=== PATIENT | male | born 1970 | race Asian ===

== ENCOUNTER 2020-08-20 00:22 | Emergency (ER) | payer OTHER, MEDICAID ==
[~2020-08-20] VITALS: Ht 190.5 cm; Wt 99.8 kg
--- NOTE | 2020-08-20 00:31 | NUR ---
PATIENT CAME TO ER [facility] FROM [facility] C/O SEIZURE. PER RA REPORT, PATIENT HAS NOT BEEN TAKING SEIZURE MEDICATIONS FOR 2 MONTHS. PATIENT IS FULLY AAOX4. NO SOB. PATIENT IS AMBULATORY WITH A STEADY GAIT. PATIENT IS CONNECTED TO THE EARLY LEARNING TEACHER. WILL CONTINUE TO MONITOR PATIENT.
[2020-08-20] MEDS ORDERED: DIVALPROEX SODIUM 500 MG TABLET.DR PO ONE ×2 (00:49→01:00)
[2020-08-20 01:28] VITALS: BP 135/69
--- NOTE | 2020-08-20 02:16 | NUR ---
PATIENT STATES THAT HE CALLED A CAB.
--- NOTE | 2020-08-20 02:17 | NUR ---
Patient discharged to home in stable condition. Written and verbal after care instructions given. Patient verbalizes understanding of instruction.
== END 2020-08-20 02:24 | disposition home or self-care (01) ==
LOC: ER 00:24
DX: G40.909 Epilepsy, unspecified, not intractable, without status epilepticus (principal); Z98.890 Other specified postprocedural states; Z88.0 Allergy status to penicillin

== ENCOUNTER 2020-08-20 02:54 | Inpatient (IN) | payer OTHER, MEDICAID ==
[2020-08-20] VITALS (24 sets, daily range): BP systolic 98–166; BP diastolic 43–123
[~2020-08-20] VITALS: Ht 190.5 cm; Wt 108.9 kg
[2020-08-20] MEDS ORDERED: LORAZEPAM INJ 2 MG/ML VIAL ONE (03:09)
[2020-08-20] MEDS ORDERED: GELATIN SPONGE,ABSORBABLE 1 SPONGE SPONGE TP ONE (03:27)
[2020-08-20] MEDS ORDERED: LORAZEPAM INJ 2 MG/ML VIAL IV ONE (03:30)
[2020-08-20 04:10] LABS: BASOPHILS % (AUTO) 0.4 % (0.0-2.0); HEMATOCRIT 37 % (39-51); HEMOGLOBIN 12.6 g/dL (13.5-17.5); LYMPHOCYTES # (AUTO) 0.5 /CMM (0.8-4.8); LYMPHOCYTES % (AUTO) 5.8 % (20.0-44.0); MEAN CORPUSCULAR HGB CONC 34 g/dl (31.0-36.0); MEAN CORPUSCULAR VOLUME 92 fL (80-96); MONOCYTES # (AUTO) 0.4 /CMM (0.1-1.30); MONOCYTES % (AUTO) 5.1 % (2.0-12.0); NEUTROPHILS % (AUTO) 88.7 % (43.0-81.0); PLATELET COUNT (AUTO) 253 /CMM (150-450); WHITE BLOOD COUNT (AUTO) 7.9 K/uL (4.3-11.0)
[2020-08-20 04:25] LABS: CALCIUM, SERUM 9.2 mg/dL (8.5-10.1); CARBON DIOXIDE 23 mmol/L (21-32); CHLORIDE 85 mmol/L (98-107); CREATININE 1.1 mg/dL (0.6-1.3); GLUCOSE 146 mg/dL (74-106); POTASSIUM 3.3 mmol/L (3.5-5.1); SODIUM SERUM 123 mmol/L (136-145); UREA NITROGEN, BLOOD 2 mg/dL (7-18)
[2020-08-20 04:31] LABS: ALANINE AMINOTRANSFERASE 314 U/L (12-78); ALCOHOL, BLOOD < 3 mg/dL (0-0); ALKALINE PHOSPHATASE 307 U/L (46-116); ASPARTATE AMINOTRANSFERASE 852 U/L (15-37); BILIRUBIN,DIRECT 2.6 mg/dL (0.0-0.2); BILIRUBIN,TOTAL 4.8 mg/dL (0.2-1.0); TOTAL PROTEIN, SERUM 7.5 g/dL (6.4-8.2)
[2020-08-20] MEDS ORDERED: LEVETIRACETAM (500MG) 500 MG/5 ML VIAL IV ONE (05:23)
[2020-08-20] MEDS ORDERED: IV NS 0.9% 1,000 ML IV ONE (05:30)
[2020-08-20] MEDS ORDERED: LEVETIRACETAM (500MG) 1,000 MG in IV NS 0.9% 100 ML IV SCH (05:30)
[2020-08-20] MEDS ORDERED: MAGNESIUM HYDROXIDE 30 ML UDC PO PRN (06:30)
[2020-08-20] MEDS ORDERED: MAG HYDROX/AL HYDROX/SIMETH 30 ML UDC PO PRN (06:30)
[2020-08-20] MEDS ORDERED: ENALAPRILAT INJ (1.25 MG/ML) 1.25 MG/ML VIAL IV PRN (07:00)
[2020-08-20 07:44] LABS: THYROID STIMULATING HORMONE 1.746 uIU/mL (0.358-3.74)
[2020-08-20 08:00] LABS: MAGNESIUM 1.3 mg/dL (1.8-2.4); PHOSPHORUS 1.5 mg/dL (2.5-4.9)
[2020-08-20] MEDS ORDERED: POTASSIUM CHLORIDE 20 MEQ TAB.PRT.SR PO SCH (12:00)
[2020-08-20] MEDS ORDERED: K PHOS NEUTRAL 250 MG TABLET PO ONE (12:00)
[2020-08-20] MEDS: Magnesium 1GM/D5W 100ML PREMIX 100 ML IV SCH ×4 (12:24→16:22)
[2020-08-20] MEDS: Potassium Chloride 10 MEQ in IV NS 0.9% 1,000 ML IV SCH ×2 (14:39→23:33)
[2020-08-20] MEDS: ACETAMINOPHEN 325 MG TABLET PO PRN (16:30)
[2020-08-20] MEDS: LORAZEPAM INJ 2 MG/ML VIAL IV PRN ×2 (18:35→22:49)
[2020-08-20] MEDS: ONDANSETRON HCL/PF 4 MG/2 ML VIAL IVP PRN (20:11)
[2020-08-21] VITALS (26 sets, daily range): BP systolic 96–151; BP diastolic 37–104
[2020-08-21 04:34] LABS: BASOPHILS % (AUTO) 0.5 % (0.0-2.0); HEMATOCRIT 34 % (39-51); HEMOGLOBIN 11.6 g/dL (13.5-17.5); LYMPHOCYTES # (AUTO) 0.8 /CMM (0.8-4.8); LYMPHOCYTES % (AUTO) 10.3 % (20.0-44.0); MEAN CORPUSCULAR HGB CONC 34 g/dl (31.0-36.0); MEAN CORPUSCULAR VOLUME 93 fL (80-96); MONOCYTES # (AUTO) 0.5 /CMM (0.1-1.30); MONOCYTES % (AUTO) 6.2 % (2.0-12.0); PLATELET COUNT (AUTO) 230 /CMM (150-450); RED BLOOD CELL COUNT(AUTO) 3.65 MIL/uL (4.5-6.0); WHITE BLOOD COUNT (AUTO) 7.4 K/uL (4.3-11.0)
[2020-08-21 04:51] LABS: CALCIUM, SERUM 8.1 mg/dL (8.5-10.1); CREATININE 0.8 mg/dL (0.6-1.3); MAGNESIUM 2.3 mg/dL (1.8-2.4); PHOSPHORUS 1.5 mg/dL (2.5-4.9); POTASSIUM 3.2 mmol/L (3.5-5.1)
[2020-08-21] MEDS ORDERED: HALOPERIDOL LACTATE INJ 5 MG/ML VIAL IM ONE (05:30)
[2020-08-21] MEDS: POTASSIUM PHOSPHATE MM 7.5 MMOL in IV NS 0.9% 100 ML IV SCH ×2 (08:45→11:51)
[2020-08-21] MEDS: Potassium Chloride 10 MEQ in IV NS 0.9% 1,000 ML IV SCH (09:36)
[2020-08-21] MEDS ORDERED: LEVETIRACETAM (500MG) 1,000 MG in IV NS 0.9% 100 ML IV ONE (17:00)
[2020-08-21] MEDS: LEVETIRACETAM (250 MG) 250 MG TABLET PO SCH (21:17)
[2020-08-22] VITALS (27 sets, daily range): BP systolic 127–163; BP diastolic 61–99
[2020-08-22 04:32] LABS: BASOPHILS % (AUTO) 0.6 % (0.0-2.0); EOSINOPHILS % (AUTO) 2.7 % (0.0-6.0); HEMATOCRIT 35 % (39-51); LYMPHOCYTES # (AUTO) 1.3 /CMM (0.8-4.8); LYMPHOCYTES % (AUTO) 16.7 % (20.0-44.0); MEAN CORPUSCULAR HGB CONC 34 g/dl (31.0-36.0); MEAN CORPUSCULAR VOLUME 94 fL (80-96); MONOCYTES # (AUTO) 0.5 /CMM (0.1-1.30); MONOCYTES % (AUTO) 6.9 % (2.0-12.0); NEUTROPHILS # (AUTO) 5.8 /CMM (1.8-8.9); NEUTROPHILS % (AUTO) 73.1 % (43.0-81.0); PLATELET COUNT (AUTO) 234 /CMM (150-450); RED BLOOD CELL COUNT(AUTO) 3.74 MIL/uL (4.5-6.0); WHITE BLOOD COUNT (AUTO) 7.9 K/uL (4.3-11.0)
[2020-08-22 05:05] LABS: ALBUMIN 3.5 g/dL (3.4-5.0); BILIRUBIN,DIRECT 1.4 mg/dL (0.0-0.2); BILIRUBIN,TOTAL 2.1 mg/dL (0.2-1.0); CALCIUM, SERUM 8.6 mg/dL (8.5-10.1); PHOSPHORUS 2.9 mg/dL (2.5-4.9); POTASSIUM 4.1 mmol/L (3.5-5.1); TOTAL PROTEIN, SERUM 7.3 g/dL (6.4-8.2)
[2020-08-22] MEDS: LEVETIRACETAM (250 MG) 250 MG TABLET PO SCH ×2 (08:36→20:19)
[2020-08-22] MEDS: HYDROCODONE/APAP 5/325MG TABLET PO PRN (09:20)
[2020-08-22] MEDS: ACETAMINOPHEN 325 MG TABLET PO PRN (10:37)
[2020-08-22] MEDS: LORAZEPAM INJ 2 MG/ML VIAL IV PRN ×2 (13:06→18:12)
[2020-08-22] MEDS: Potassium Chloride 10 MEQ in IV NS 0.9% 1,000 ML IV SCH (15:45)
[2020-08-23] VITALS (21 sets, daily range): BP systolic 125–158; BP diastolic 88–117
[2020-08-23] MEDS: LORAZEPAM INJ 2 MG/ML VIAL IV PRN ×2 (03:51→20:42)
[2020-08-23 04:41] LABS: BASOPHILS # (AUTO) 0.1 /CMM (0.0-0.2); BASOPHILS % (AUTO) 0.8 % (0.0-2.0); EOSINOPHILS % (AUTO) 2.4 % (0.0-6.0); HEMATOCRIT 35 % (39-51); HEMOGLOBIN 11.9 g/dL (13.5-17.5); LYMPHOCYTES # (AUTO) 1.1 /CMM (0.8-4.8); LYMPHOCYTES % (AUTO) 15.8 % (20.0-44.0); MEAN CORPUSCULAR HGB CONC 34 g/dl (31.0-36.0); MEAN CORPUSCULAR VOLUME 94 fL (80-96); MONOCYTES # (AUTO) 0.6 /CMM (0.1-1.30); MONOCYTES % (AUTO) 9.7 % (2.0-12.0); NEUTROPHILS # (AUTO) 4.8 /CMM (1.8-8.9); NEUTROPHILS % (AUTO) 71.3 % (43.0-81.0); PLATELET COUNT (AUTO) 250 /CMM (150-450); RED BLOOD CELL COUNT(AUTO) 3.71 MIL/uL (4.5-6.0); WHITE BLOOD COUNT (AUTO) 6.7 K/uL (4.3-11.0)
[2020-08-23 04:51] LABS: ALBUMIN 3.4 g/dL (3.4-5.0); BILIRUBIN,DIRECT 0.8 mg/dL (0.0-0.2); BILIRUBIN,TOTAL 1.3 mg/dL (0.2-1.0); CALCIUM, SERUM 8.7 mg/dL (8.5-10.1); CREATININE 0.8 mg/dL (0.6-1.3); POTASSIUM 3.8 mmol/L (3.5-5.1); TOTAL PROTEIN, SERUM 7.4 g/dL (6.4-8.2)
[2020-08-23] MEDS: LEVETIRACETAM (250 MG) 250 MG TABLET PO SCH ×2 (08:39→20:35)
[2020-08-23] MEDS ORDERED: LEVETIRACETAM (250 MG) 250 MG TABLET PO ONE (09:00)
[2020-08-23] MEDS: MORPHINE SULFATE INJ 2 MG/ML DISP.SYRIN IV PRN ×2 (09:02→18:19)
[2020-08-23] MEDS: HYDROCODONE/APAP 5/325MG TABLET PO PRN (12:26)
[2020-08-23] MEDS: ACETAMINOPHEN 325 MG TABLET PO PRN ×2 (13:01→20:35)
[2020-08-24] MEDS: MORPHINE SULFATE INJ 2 MG/ML DISP.SYRIN IV PRN ×3 (01:09→15:32)
[2020-08-24] MEDS: LORAZEPAM INJ 2 MG/ML VIAL IV PRN ×2 (03:09→06:56)
[2020-08-24] MEDS: ACETAMINOPHEN 325 MG TABLET PO PRN ×3 (03:17→20:05)
[2020-08-24 06:47] LABS: BASOPHILS % (AUTO) 0.4 % (0.0-2.0); EOSINOPHILS % (AUTO) 0.3 % (0.0-6.0); HEMATOCRIT 36 % (39-51); HEMOGLOBIN 12.4 g/dL (13.5-17.5); LYMPHOCYTES # (AUTO) 0.7 /CMM (0.8-4.8); LYMPHOCYTES % (AUTO) 10.7 % (20.0-44.0); MEAN CORPUSCULAR HGB CONC 34 g/dl (31.0-36.0); MEAN CORPUSCULAR VOLUME 95 fL (80-96); MONOCYTES # (AUTO) 0.6 /CMM (0.1-1.30); MONOCYTES % (AUTO) 9.9 % (2.0-12.0); NEUTROPHILS % (AUTO) 78.7 % (43.0-81.0); PLATELET COUNT (AUTO) 244 /CMM (150-450); RED BLOOD CELL COUNT(AUTO) 3.82 MIL/uL (4.5-6.0); WHITE BLOOD COUNT (AUTO) 6.3 K/uL (4.3-11.0)
[2020-08-24 07:03] LABS: ALBUMIN 3.5 g/dL (3.4-5.0); BILIRUBIN,TOTAL 1.3 mg/dL (0.2-1.0); CALCIUM, SERUM 8.8 mg/dL (8.5-10.1); CREATININE 0.9 mg/dL (0.6-1.3); MAGNESIUM 1.6 mg/dL (1.8-2.4); PHOSPHORUS 3.3 mg/dL (2.5-4.9); POTASSIUM 3.8 mmol/L (3.5-5.1); TOTAL PROTEIN, SERUM 7.5 g/dL (6.4-8.2)
[2020-08-24 08:00] VITALS: BP 136/76
[2020-08-24] MEDS: LEVETIRACETAM (250 MG) 250 MG TABLET PO SCH ×2 (09:38→21:07)
[2020-08-24] MEDS ORDERED: Magnesium 1GM/D5W 100ML PREMIX 100 ML IV SCH (11:00)
[2020-08-24] MEDS ORDERED: ONDANSETRON HCL/PF 4 MG/2 ML VIAL IV PRN (14:00)
[2020-08-24 16:00] VITALS: BP 140/87
[2020-08-24 20:00] VITALS: BP 129/69
[2020-08-24] MEDS: HYDROCODONE/APAP 5/325MG TABLET PO PRN (21:08)
[2020-08-24] MEDS ORDERED: QUETIAPINE FUMARATE 25 MG TABLET PO SCH (22:00)
[2020-08-24] MEDS ORDERED: LEVOFLOXACIN 500 MG /D5W 100ML 100 ML IV ONE (22:03)
[2020-08-24] MEDS: LEVOFLOXACIN 500 MG /D5W 100ML 500 MG in PREMIX 1 EA IV SCH (22:04)
[2020-08-25] MEDS: HYDROCODONE/APAP 5/325MG TABLET PO PRN ×5 (01:42→20:59)
[2020-08-25] MEDS: ACETAMINOPHEN 325 MG TABLET PO PRN ×2 (02:30→10:23)
[2020-08-25 03:52] LABS: BILIRUBIN,URINE SMALL (NEGATIVE); COLOR,URINE YELLOW (YELLOW); LEUKOCYTE ESTERASE ,URINE NEGATIVE (NEGATIVE); NITRITE, URINE NEGATIVE (NEGATIVE); PROTEIN,URINE NEGATIVE (NEGATIVE); UGLUCOSE NEGATIVE (NEGATIVE)
[2020-08-25 04:02] LABS: WBC,URINE 0-2 /HPF (0-3)
[2020-08-25 04:03] LABS: BACTERIA,URINE None seen /HPF (None Seen); MUCUS,URINE Few /LPF (None Seen); SQUAMOUS EPITHELIAL CELL,UR Few /HPF (None Seen); URINE AMORPHOUS PHOSPHATES Few /HPF (None Seen)
[2020-08-25 07:21] LABS: BASOPHILS % (AUTO) 0.7 % (0.0-2.0); EOSINOPHILS % (AUTO) 0.2 % (0.0-6.0); HEMATOCRIT 34 % (39-51); HEMOGLOBIN 11.8 g/dL (13.5-17.5); LYMPHOCYTES # (AUTO) 0.6 /CMM (0.8-4.8); LYMPHOCYTES % (AUTO) 9.8 % (20.0-44.0); MEAN CORPUSCULAR HGB CONC 35 g/dl (31.0-36.0); MEAN CORPUSCULAR VOLUME 94 fL (80-96); MONOCYTES # (AUTO) 0.7 /CMM (0.1-1.30); MONOCYTES % (AUTO) 11.2 % (2.0-12.0); NEUTROPHILS # (AUTO) 4.6 /CMM (1.8-8.9); NEUTROPHILS % (AUTO) 78.1 % (43.0-81.0); PLATELET COUNT (AUTO) 199 /CMM (150-450); RED BLOOD CELL COUNT(AUTO) 3.66 MIL/uL (4.5-6.0); WHITE BLOOD COUNT (AUTO) 5.9 K/uL (4.3-11.0)
[2020-08-25 07:51] LABS: ALBUMIN 3.1 g/dL (3.4-5.0); BILIRUBIN,DIRECT 0.9 mg/dL (0.0-0.2); BILIRUBIN,TOTAL 1.5 mg/dL (0.2-1.0); CALCIUM, SERUM 8.4 mg/dL (8.5-10.1); POTASSIUM 3.7 mmol/L (3.5-5.1); TOTAL PROTEIN, SERUM 7.1 g/dL (6.4-8.2)
[2020-08-25 08:00] VITALS: BP 133/71
[2020-08-25] MEDS ORDERED: QUET25TA PO (09:18)
[2020-08-25] MEDS ORDERED: LEVE250T2 PO (09:18)
[2020-08-25] MEDS: LEVETIRACETAM (250 MG) 250 MG TABLET PO SCH ×2 (09:22→20:25)
[2020-08-25] MEDS: IV NS 0.9% 1,000 ML IV SCH ×2 (12:22→20:40)
[2020-08-25] MEDS: VANCOMYCIN 1 GM in IV D5W 250ml IV SCH ×2 (14:21→15:26)
[2020-08-25 16:00] VITALS: BP 144/76
[2020-08-25] MEDS: ONDANSETRON HCL/PF 4 MG/2 ML VIAL IVP PRN (19:45)
[2020-08-25 20:00] VITALS: BP 144/95
[2020-08-25] MEDS: LEVOFLOXACIN 500 MG /D5W 100ML 500 MG in PREMIX 1 EA IV SCH (20:17)
[2020-08-25] MEDS ORDERED: QUETIAPINE FUMARATE 25 MG TABLET PO SCH (22:00)
[2020-08-26] MEDS: HYDROCODONE/APAP 5/325MG TABLET PO PRN ×3 (02:06→15:50)
[2020-08-26] MEDS: ACETAMINOPHEN 325 MG TABLET PO PRN ×3 (03:06→19:12)
[2020-08-26] MEDS: VANCOMYCIN 1.5 GM in IV D5W 500 ML IV SCH ×2 (03:34→15:07)
[2020-08-26] MEDS: IV NS 0.9% 1,000 ML IV SCH ×2 (06:40→17:34)
[2020-08-26 07:13] LABS: EOSINOPHILS % (AUTO) 0.1 % (0.0-6.0); HEMATOCRIT 33 % (39-51); HEMOGLOBIN 11.4 g/dL (13.5-17.5); LYMPHOCYTES # (AUTO) 0.5 /CMM (0.8-4.8); LYMPHOCYTES % (AUTO) 15.2 % (20.0-44.0); MEAN CORPUSCULAR HGB CONC 34 g/dl (31.0-36.0); MEAN CORPUSCULAR VOLUME 94 fL (80-96); MONOCYTES # (AUTO) 0.4 /CMM (0.1-1.30); MONOCYTES % (AUTO) 9.7 % (2.0-12.0); NEUTROPHILS # (AUTO) 2.7 /CMM (1.8-8.9); PLATELET COUNT (AUTO) 166 /CMM (150-450); RED BLOOD CELL COUNT(AUTO) 3.55 MIL/uL (4.5-6.0); WHITE BLOOD COUNT (AUTO) 3.6 K/uL (4.3-11.0)
[2020-08-26 07:35] LABS: ALBUMIN 2.8 g/dL (3.4-5.0); BILIRUBIN,DIRECT 0.9 mg/dL (0.0-0.2); BILIRUBIN,TOTAL 1.3 mg/dL (0.2-1.0); CALCIUM, SERUM 8.4 mg/dL (8.5-10.1); CREATININE 1.6 mg/dL (0.6-1.3); MAGNESIUM 2.1 mg/dL (1.8-2.4); PHOSPHORUS 3.3 mg/dL (2.5-4.9); POTASSIUM 3.5 mmol/L (3.5-5.1); TOTAL PROTEIN, SERUM 6.7 g/dL (6.4-8.2)
[2020-08-26 08:00] VITALS: BP 104/74
[2020-08-26] MEDS: ONDANSETRON HCL/PF 4 MG/2 ML VIAL IVP PRN (09:48)
[2020-08-26] MEDS: LEVETIRACETAM (250 MG) 250 MG TABLET PO SCH ×2 (11:20→21:12)
[2020-08-26 15:43] LABS: BILIRUBIN,URINE NEGATIVE (NEGATIVE); COLOR,URINE YELLOW (YELLOW); LEUKOCYTE ESTERASE ,URINE NEGATIVE (NEGATIVE); NITRITE, URINE NEGATIVE (NEGATIVE); PROTEIN,URINE NEGATIVE (NEGATIVE); UGLUCOSE NEGATIVE (NEGATIVE)
[2020-08-26 16:02] LABS: BACTERIA,URINE None seen /HPF (None Seen); SQUAMOUS EPITHELIAL CELL,UR 0-2 /HPF (None Seen); URINE AMORPHOUS URATE Moderate /HPF (None Seen); WBC,URINE 0-2 /HPF (0-3)
[2020-08-26 16:17] LABS: CREATININE, URINE 44.2 MG/DL (30.0-125.0); URINE TOTAL PROTEIN 28.9 mg/dL (0-11.9)
[2020-08-26 16:20] LABS: URINE SODIUM, RANDOM < 5 mmol/l (40-220)
[2020-08-26 17:32] LABS: EOSINOPHIL,URINE None Seen
[2020-08-26 20:00] VITALS: BP 144/83
[2020-08-26] MEDS: MORPHINE SULFATE INJ 2 MG/ML DISP.SYRIN IV PRN (20:18)
[2020-08-26] MEDS: LEVOFLOXACIN 500 MG /D5W 100ML 500 MG in PREMIX 1 EA IV SCH (21:13)
[2020-08-26] MEDS ORDERED: QUETIAPINE FUMARATE 100 MG TABLET PO SCH (22:00)
[2020-08-27] MEDS: ACETAMINOPHEN 325 MG TABLET PO PRN ×3 (00:37→21:59)
[2020-08-27 01:52] VITALS: BP 144/83
[2020-08-27] MEDS: MORPHINE SULFATE INJ 2 MG/ML DISP.SYRIN IV PRN ×4 (02:10→19:45)
[2020-08-27] MEDS: VANCOMYCIN 1.5 GM in IV D5W 500 ML IV SCH (02:54)
[2020-08-27] MEDS: IV NS 0.9% 1,000 ML IV SCH ×3 (03:30→22:01)
[2020-08-27 07:01] LABS: BASOPHILS % (AUTO) 0.6 % (0.0-2.0); EOSINOPHILS % (AUTO) 0.3 % (0.0-6.0); HEMATOCRIT 32 % (39-51); HEMOGLOBIN 11.1 g/dL (13.5-17.5); LYMPHOCYTES # (AUTO) 0.6 /CMM (0.8-4.8); LYMPHOCYTES % (AUTO) 11.8 % (20.0-44.0); MEAN CORPUSCULAR HGB CONC 35 g/dl (31.0-36.0); MEAN CORPUSCULAR VOLUME 91 fL (80-96); MONOCYTES # (AUTO) 0.3 /CMM (0.1-1.30); NEUTROPHILS # (AUTO) 4.2 /CMM (1.8-8.9); NEUTROPHILS % (AUTO) 81.3 % (43.0-81.0); PLATELET COUNT (AUTO) 157 /CMM (150-450); RED BLOOD CELL COUNT(AUTO) 3.48 MIL/uL (4.5-6.0); WHITE BLOOD COUNT (AUTO) 5.2 K/uL (4.3-11.0)
[2020-08-27 07:22] LABS: ALBUMIN 2.8 g/dL (3.4-5.0); BILIRUBIN,TOTAL 1.4 mg/dL (0.2-1.0); CALCIUM, SERUM 8.2 mg/dL (8.5-10.1); CREATININE 1.6 mg/dL (0.6-1.3); MAGNESIUM 2.1 mg/dL (1.8-2.4); PHOSPHORUS 1.9 mg/dL (2.5-4.9); POTASSIUM 3.9 mmol/L (3.5-5.1); TOTAL PROTEIN, SERUM 6.7 g/dL (6.4-8.2)
[2020-08-27 08:00] VITALS: BP 135/85
[2020-08-27] MEDS: LEVETIRACETAM (250 MG) 250 MG TABLET PO SCH ×2 (09:30→21:59)
[2020-08-27] MEDS: ONDANSETRON HCL/PF 4 MG/2 ML VIAL IVP PRN (09:40)
[2020-08-27] MEDS ORDERED: K PHOS NEUTRAL 250 MG TABLET PO ONE (11:30)
[2020-08-27] MEDS: VANCOMYCIN 1.25 GM in IV D5W 250 ML IV SCH (15:36)
[2020-08-27 16:00] VITALS: BP 121/73
[2020-08-27 20:00] VITALS: BP 119/82
[2020-08-27] MEDS ORDERED: QUETIAPINE FUMARATE 100 MG TABLET PO SCH (22:00)
[2020-08-28] MEDS: VANCOMYCIN 1.25 GM in IV D5W 250 ML IV SCH ×2 (02:03→15:22)
[2020-08-28] MEDS: MORPHINE SULFATE INJ 2 MG/ML DISP.SYRIN IV PRN ×4 (04:22→19:48)
[2020-08-28 06:45] LABS: BASOPHILS % (AUTO) 0.7 % (0.0-2.0); EOSINOPHILS % (AUTO) 0.6 % (0.0-6.0); HEMATOCRIT 33 % (39-51); HEMOGLOBIN 11.2 g/dL (13.5-17.5); LYMPHOCYTES # (AUTO) 0.9 /CMM (0.8-4.8); LYMPHOCYTES % (AUTO) 13.3 % (20.0-44.0); MEAN CORPUSCULAR HGB CONC 34 g/dl (31.0-36.0); MEAN CORPUSCULAR VOLUME 92 fL (80-96); MONOCYTES # (AUTO) 0.5 /CMM (0.1-1.30); MONOCYTES % (AUTO) 7.5 % (2.0-12.0); NEUTROPHILS # (AUTO) 5.2 /CMM (1.8-8.9); NEUTROPHILS % (AUTO) 77.9 % (43.0-81.0); PLATELET COUNT (AUTO) 191 /CMM (150-450); RED BLOOD CELL COUNT(AUTO) 3.58 MIL/uL (4.5-6.0); WHITE BLOOD COUNT (AUTO) 6.7 K/uL (4.3-11.0)
[2020-08-28 07:00] LABS: CREATININE 1.5 mg/dL (0.6-1.3); MAGNESIUM 2.3 mg/dL (1.8-2.4); PHOSPHORUS 2.4 mg/dL (2.5-4.9); POTASSIUM 3.6 mmol/L (3.5-5.1)
[2020-08-28 08:00] VITALS: BP 151/83
[2020-08-28 08:06] LABS: PTH, INTACT 31 pg/mL (15-65)
[2020-08-28 09:07] LABS: CREATININE KINASE (CK),MB < 1.0 ng/mL (0.0-10.4)
[2020-08-28] MEDS: IV NS 0.9% 1,000 ML IV SCH ×2 (09:28→19:54)
[2020-08-28] MEDS ORDERED: K PHOS NEUTRAL 250 MG TABLET PO ONE (11:00)
[2020-08-28] MEDS: LEVETIRACETAM (250 MG) 250 MG TABLET PO SCH ×2 (11:27→22:09)
[2020-08-28 14:07] LABS: *SPE A/G RATIO 0.8 (0.7-1.7); *SPE ALBUMIN 2.8 g/dL (2.9-4.4); *SPE ALPHA-1-GLOBULIN 0.4 g/dL (0.0-0.4); *SPE ALPHA-2-GLOBULIN 0.9 g/dL (0.4-1.0); *SPE GLOBULIN, TOTAL 3.4 g/dL (2.2-3.9); *SPE M-SPIKE Not Observed g/dL (Not Observed); *SPEGAMMA GLOBULIN 1.1 g/dL (0.4-1.8)
[2020-08-28 15:55] VITALS: BP 104/61
[2020-08-28 20:00] VITALS: BP 100/75
[2020-08-28] MEDS: QUETIAPINE FUMARATE 100 MG TABLET PO SCH (22:10)
[2020-08-29] MEDS: MORPHINE SULFATE INJ 2 MG/ML DISP.SYRIN IV PRN ×4 (02:45→19:52)
[2020-08-29] MEDS: VANCOMYCIN 1.25 GM in IV D5W 250 ML IV SCH ×2 (02:45→17:29)
[2020-08-29 06:30] LABS: BASOPHILS % (AUTO) 0.8 % (0.0-2.0); EOSINOPHILS % (AUTO) 2.2 % (0.0-6.0); HEMATOCRIT 29 % (39-51); LYMPHOCYTES # (AUTO) 1.4 /CMM (0.8-4.8); LYMPHOCYTES % (AUTO) 25.1 % (20.0-44.0); MEAN CORPUSCULAR HGB CONC 35 g/dl (31.0-36.0); MEAN CORPUSCULAR VOLUME 93 fL (80-96); MONOCYTES # (AUTO) 0.6 /CMM (0.1-1.30); MONOCYTES % (AUTO) 10.6 % (2.0-12.0); NEUTROPHILS # (AUTO) 3.5 /CMM (1.8-8.9); NEUTROPHILS % (AUTO) 61.3 % (43.0-81.0); PLATELET COUNT (AUTO) 228 /CMM (150-450); WHITE BLOOD COUNT (AUTO) 5.7 K/uL (4.3-11.0)
[2020-08-29] MEDS: IV NS 0.9% 1,000 ML IV SCH ×2 (06:45→15:44)
[2020-08-29 07:22] LABS: CALCIUM, SERUM 8.1 mg/dL (8.5-10.1); CREATININE 1.4 mg/dL (0.6-1.3); MAGNESIUM 2.3 mg/dL (1.8-2.4); PHOSPHORUS 2.1 mg/dL (2.5-4.9)
[2020-08-29 07:28] LABS: POTASSIUM 2.6 mmol/L (3.5-5.1)
[2020-08-29 08:00] VITALS: BP_SYST 106; BP_SYST 133; BP_DIAS 77; BP_DIAS 85
[2020-08-29] MEDS: LEVETIRACETAM (250 MG) 250 MG TABLET PO SCH ×2 (08:57→20:13)
[2020-08-29] MEDS ORDERED: POTASSIUM CHLORIDE 20 MEQ TAB.PRT.SR PO ONE (09:30)
[2020-08-29] MEDS ORDERED: POTASSIUM PHOSPHATE MM 15 MMOL in IV NS 0.9% 250 ML IV SCH (09:30)
[2020-08-29] MEDS: POTASSIUM CL. PREMIX PERIPHER. 50 ML IV SCH ×4 (09:49→13:01)
[2020-08-29] MEDS: POTASSIUM PHOSPHATE MM 7.5 MMOL in IV NS 0.9% 100 ML IV SCH ×2 (13:26→20:43)
[2020-08-29 16:00] VITALS: BP 119/78
[2020-08-29 20:00] VITALS: BP 140/80
[2020-08-29] MEDS: QUETIAPINE FUMARATE 100 MG TABLET PO SCH (21:42)
[2020-08-30] MEDS: IV NS 0.9% 1,000 ML IV SCH ×3 (02:10→21:14)
[2020-08-30] MEDS: MORPHINE SULFATE INJ 2 MG/ML DISP.SYRIN IV PRN ×4 (03:02→17:23)
[2020-08-30] MEDS: VANCOMYCIN 1.25 GM in IV D5W 250 ML IV SCH ×2 (03:02→15:00)
[2020-08-30 06:43] LABS: BASOPHILS # (AUTO) 0.1 /CMM (0.0-0.2); BASOPHILS % (AUTO) 0.9 % (0.0-2.0); EOSINOPHILS % (AUTO) 2.6 % (0.0-6.0); HEMATOCRIT 31 % (39-51); HEMOGLOBIN 10.3 g/dL (13.5-17.5); LYMPHOCYTES # (AUTO) 1.9 /CMM (0.8-4.8); LYMPHOCYTES % (AUTO) 23.6 % (20.0-44.0); MEAN CORPUSCULAR HGB CONC 34 g/dl (31.0-36.0); MEAN CORPUSCULAR VOLUME 93 fL (80-96); MONOCYTES # (AUTO) 0.8 /CMM (0.1-1.30); MONOCYTES % (AUTO) 10.4 % (2.0-12.0); NEUTROPHILS % (AUTO) 62.5 % (43.0-81.0); PLATELET COUNT (AUTO) 386 /CMM (150-450); RED BLOOD CELL COUNT(AUTO) 3.29 MIL/uL (4.5-6.0)
[2020-08-30 07:23] LABS: CALCIUM, SERUM 8.2 mg/dL (8.5-10.1); CREATININE 1.3 mg/dL (0.6-1.3); MAGNESIUM 2.4 mg/dL (1.8-2.4); PHOSPHORUS 2.4 mg/dL (2.5-4.9); POTASSIUM 3.4 mmol/L (3.5-5.1)
[2020-08-30 08:01] VITALS: BP 128/79
[2020-08-30] MEDS: LEVETIRACETAM (250 MG) 250 MG TABLET PO SCH ×2 (08:45→21:15)
[2020-08-30] MEDS ORDERED: POTASSIUM CHLORIDE 20 MEQ TAB.PRT.SR PO SCH (10:00)
[2020-08-30] MEDS ORDERED: K PHOS NEUTRAL 250 MG TABLET PO ONE (12:30)
[2020-08-30 16:03] VITALS: BP 138/91
[2020-08-30] MEDS: VANCOMYCIN 1 GM in IV D5W 250 ML IV SCH (18:45)
[2020-08-30 20:00] VITALS: BP 136/80
[2020-08-30] MEDS: QUETIAPINE FUMARATE 100 MG TABLET PO SCH (21:15)
[2020-08-31] MEDS: MORPHINE SULFATE INJ 2 MG/ML DISP.SYRIN IV PRN ×5 (05:21→20:41)
[2020-08-31] MEDS: VANCOMYCIN 1 GM in IV D5W 250 ML IV SCH ×2 (05:32→17:55)
[2020-08-31 07:05] LABS: CALCIUM, SERUM 7.9 mg/dL (8.5-10.1); CREATININE 1.3 mg/dL (0.6-1.3); PHOSPHORUS 3.5 mg/dL (2.5-4.9); POTASSIUM 3.7 mmol/L (3.5-5.1)
[2020-08-31 08:00] VITALS: BP 119/68
[2020-08-31] MEDS: ACETAMINOPHEN 325 MG TABLET PO PRN (09:27)
[2020-08-31] MEDS: LEVETIRACETAM (250 MG) 250 MG TABLET PO SCH ×2 (09:27→20:40)
[2020-08-31] MEDS: IV NS 0.9% 1,000 ML IV SCH ×2 (11:35→20:39)
[2020-08-31 16:00] VITALS: BP 143/80
[2020-08-31 20:00] VITALS: BP 137/84
[2020-08-31] MEDS: QUETIAPINE FUMARATE 100 MG TABLET PO SCH (21:43)
[2020-09-01 00:15] VITALS: BP 137/84
[2020-09-01] MEDS: MORPHINE SULFATE INJ 2 MG/ML DISP.SYRIN IV PRN ×5 (02:31→20:06)
[2020-09-01] MEDS: VANCOMYCIN 1 GM in IV D5W 250 ML IV SCH (05:09)
[2020-09-01 06:50] LABS: CALCIUM, SERUM 8.2 mg/dL (8.5-10.1); CREATININE 1.2 mg/dL (0.6-1.3); POTASSIUM 3.9 mmol/L (3.5-5.1)
[2020-09-01 08:00] VITALS: BP 121/62
[2020-09-01] MEDS: LEVETIRACETAM (250 MG) 250 MG TABLET PO SCH ×2 (08:12→21:09)
[2020-09-01] MEDS ORDERED: CEFAZOLIN 1 GM VIAL IM SCH (14:30)
[2020-09-01] MEDS: CEFAZOLIN 2 GM in IV D5W 100 ML IV SCH (16:11)
[2020-09-01 16:31] VITALS: BP 123/74
[2020-09-01 20:00] VITALS: BP 129/73
[2020-09-01 20:46] VITALS: BP 129/73
[2020-09-01] MEDS: QUETIAPINE FUMARATE 100 MG TABLET PO SCH (21:35)
[2020-09-02] MEDS: MORPHINE SULFATE INJ 2 MG/ML DISP.SYRIN IV PRN ×3 (01:05→13:10)
[2020-09-02] MEDS: CEFAZOLIN 2 GM in IV D5W 100 ML IV SCH ×2 (01:28→08:41)
[2020-09-02 07:01] LABS: CALCIUM, SERUM 8.2 mg/dL (8.5-10.1); CREATININE 1.3 mg/dL (0.6-1.3); POTASSIUM 3.8 mmol/L (3.5-5.1)
[2020-09-02 08:00] VITALS: BP 137/84
[2020-09-02] MEDS: LEVETIRACETAM (250 MG) 250 MG TABLET PO SCH (08:41)
[2020-09-02] MEDS ORDERED: QUETIAPINE FUMARATE 100 MG TABLET PO SCH (22:00)
== END 2020-09-02 15:00 | disposition home or self-care (01) | DRG 871 ==
LOC: ER 02:56 → ICU 08:48 → MED 08-23 06:59
PROVIDERS: ADMIT Internal Medicine
DX: A41.01 Sepsis due to Methicillin susceptible Staphylococcus aureus (principal); S06.6X0A Traumatic subarachnoid hemorrhage without loss of consciousness, initial encounter; N17.0 Acute kidney failure with tubular necrosis; E87.1 Hypo-osmolality and hyponatremia; R44.0 Auditory hallucinations; F05 Delirium due to known physiological condition; W19.XXXA Unspecified fall, initial encounter; J45.909 Unspecified asthma, uncomplicated; Y92.89 Other specified places as the place of occurrence of the external cause; E83.39 Other disorders of phosphorus metabolism; E83.42 Hypomagnesemia; Z68.30 Body mass index [BMI] 30.0-30.9, adult; E66.9 Obesity, unspecified; K70.10 Alcoholic hepatitis without ascites; Z98.890 Other specified postprocedural states; Z88.0 Allergy status to penicillin; V89.2XXS Person injured in unspecified motor-vehicle accident, traffic, sequela; Z20.822 Contact with and (suspected) exposure to COVID-19; R74.01 Elevation of levels of liver transaminase levels; E86.1 Hypovolemia; G40.909 Epilepsy, unspecified, not intractable, without status epilepticus; Z91.14 Patient's other noncompliance with medication regimen; E87.6 Hypokalemia; F10.20 Alcohol dependence, uncomplicated; Y90.9 Presence of alcohol in blood, level not specified; F31.9 Bipolar disorder, unspecified; S90.112A Contusion of left great toe without damage to nail, initial encounter; X58.XXXA Exposure to other specified factors, initial encounter; Y92.9 Unspecified place or not applicable; L89.526 Pressure-induced deep tissue damage of left ankle; R44.1 Visual hallucinations; T42.6X5A Adverse effect of other antiepileptic and sedative-hypnotic drugs, initial encounter
CPT/HCPCS: 36415; 70450-TC; 71045-TC; 73630-TC; 76700-TC; 76882; 80048-TC; 80053-TC; 80061-TC; 80076-TC; 80164-TC; 80202-TC; 81001; 82140-TC; 82550-TC; 82553; 82570-TC; 83735-TC; 83970; 84100-TC; 84132-TC; 84155; 84155-TC; 84165; 84300-TC; 84443-TC; 85025-TC; 85730-TC; 87040-TC; 87081-TC; 87086-TC; 93307-TC; A4216; C9803; G0378; G0480; J0690; J1630; J1953; J1956; J2060; J2270; J2405; J3370; J3475; J3480; J3490; J7030; J7042; J7060

== ENCOUNTER 2020-09-08 11:02 | Emergency (ER) | payer OTHER ==
[~2020-09-08] VITALS: Ht 190.5 cm; Wt 104.3 kg
[~2020-09-08 11:02] MED LIST: LEVE250T2 PO; QUET25TA PO
[2020-09-08 11:15] VITALS: BP 122/79
[2020-09-08] MEDS ORDERED: CYCL10TA9 PO (11:23)
[2020-09-08] MEDS ORDERED: METH-807 PO (11:23)
--- NOTE | 2020-09-08 11:28 | NUR ---
Patient discharged to home in stable condition. Written and verbal after care instructions given. Patient verbalizes understanding of instruction.
== END 2020-09-08 11:29 | disposition home or self-care (01) ==
LOC: ER 11:12
DX: M54.5 Low back pain (principal); J45.909 Unspecified asthma, uncomplicated; Z98.890 Other specified postprocedural states; Z88.0 Allergy status to penicillin; Z79.899 Other long term (current) drug therapy

== ENCOUNTER 2020-10-11 08:56 | Emergency (ER) | payer OTHER ==
[~2020-10-11] VITALS: Ht 190.5 cm; Wt 104.3 kg
[~2020-10-11 08:56] MED LIST changes: +CYCL10TA9 PO; +METH-807 PO
--- NOTE | 2020-10-11 09:01 | NUR ---
CALLED IN THE WAITING ROOM, NO RESPONSE
--- NOTE | 2020-10-11 09:23 | NUR ---
THE PATIENT BIBS FOR C/O WORSENING BACK PAIN X 4 WEEKS, WAS HERE 2 DAYS AGO FOR SAME REASON. RATES PAIN 7/10. RESPIRATION REGULAR AND UNLABORED. WILL CONTINUE TO MONITOR THE PATIENT.
[2020-10-11] MEDS ORDERED: OXYC-128 PO (09:36)
--- NOTE | 2020-10-11 09:58 | NUR ---
The patient is alert and oriented x4. Patient discharged to home in stable condition. Written and verbal after care instructions given. Patient verbalizes understanding of instruction.
[2020-10-11 09:59] VITALS: BP 137/84
== END 2020-10-11 09:59 | disposition home or self-care (01) ==
LOC: ER 09:10
DX: G89.29 Other chronic pain (principal); M54.5 Low back pain; J45.909 Unspecified asthma, uncomplicated; Z98.890 Other specified postprocedural states; Z88.0 Allergy status to penicillin; Z79.899 Other long term (current) drug therapy

== ENCOUNTER 2020-11-01 09:32 | Emergency (ER) | payer OTHER ==
[~2020-11-01] VITALS: Ht 190.5 cm; Wt 104.3 kg
[~2020-11-01 09:32] MED LIST changes: +OXYC-128 PO
[2020-11-01 09:38] VITALS: BP 110/77
--- NOTE | 2020-11-01 09:44 | NUR ---
THE PATIENT BIBS FOR STAPLE REMOVAL ON THE HEAD. THE SITE WITH NO DRAINAGE OR S/S INFECTION. DENIES PAIN. WILL CONTINUE TO MONITOR THE PATIENT.
== END 2020-11-01 09:49 | disposition home or self-care (01) ==
LOC: ER 09:45
DX: S01.01XD Laceration without foreign body of scalp, subsequent encounter (principal); J45.909 Unspecified asthma, uncomplicated; Z98.890 Other specified postprocedural states; Z88.0 Allergy status to penicillin; Z79.899 Other long term (current) drug therapy; W19.XXXD Unspecified fall, subsequent encounter

== ENCOUNTER 2020-11-20 22:39 | Inpatient (IN) | payer OTHER ==
[~2020-11-20] VITALS: Ht 190.5 cm; Wt 111.6 kg
--- NOTE | 2020-11-20 22:30 | NUR ---
PT TRANSPORTED VIA GURNEY TO UNIT AT THIS TIME. REPORTED RECEIVED FROM DALJIT NORWOOD RN. PT ADMITTED TO TELE. AOX4 ABLE TO MAKE NEEDS KNOWN. ON 2LNC OXYGEN, NO SOB NOTED. PT ON EXTERNAL SERVICE ORDER DISPATCHER CHIEF READING ST 120. PT DENIES PAIN OR DISCOMFORT AT THIS TIME. SKIN IS INTACT. ALL BELONGINGS ACCOUNTED FOR AND SIGNED BY PATIENT. IV ACCESS NOTED ON RAC G#20, R WRIST #20 INTACT, PATENT, AND FLUSHING WELL. SAFETY PRECAUTIONS IN PLACE AND MAINTAINED AT ALL TIMES. BED IN LOWEST LOCKED POSITION, HOB ELEVATED, SIDE RAILS UP X2. CALL LIGHT AND TABLE WITHIN REACH, BED ALARM ON. WILL CONTINUE TO MONITOR.
[~2020-11-20 22:39] MED LIST changes: -METH-807 PO; +METH750T3 PO
--- NOTE | 2020-11-20 23:12 | NUR ---
pt placed on o2. 92% RA, now 97%
--- NOTE | 2020-11-20 23:12 | NUR ---
pt bibself c/o RLQ pain x3 days that radiate to back. pt aaox4 breathing evenly and unlabored. Pt has extensive chronic pain hx from back surgery. Pt attached to monitor and pox. MD at bedside. SKin warm, dry, and intact. Pt given blanket and call light within reach
[2020-11-20] MEDS ORDERED: MORPHINE SULFATE INJ 2 MG/ML DISP.SYRIN IV ONE (23:30)
[2020-11-20] MEDS ORDERED: ONDANSETRON HCL/PF 4 MG/2 ML VIAL IVP ONE (23:30)
[2020-11-20] MEDS ORDERED: IV NS 0.9% 1,000 ML BAG IV ONE (23:30)
[2020-11-20] MEDS ORDERED: ONDANSETRON HCL/PF 4 MG/2 ML VIAL ONE (23:31)
[2020-11-20] MEDS ORDERED: MORPHINE SULFATE INJ 4 MG/ML DISP.SYRIN ONE (23:31)
--- NOTE | 2020-11-20 23:33 | NUR ---
blood obtained and sent to lab
[2020-11-20 23:36] LABS: BILIRUBIN,URINE SMALL (NEGATIVE); LEUKOCYTE ESTERASE ,URINE Negative (NEGATIVE); NITRITE, URINE Negative (NEGATIVE); PROTEIN,URINE 30 mg/dl (NEGATIVE); UGLUCOSE Negative (NEGATIVE)
[2020-11-20 23:37] LABS: COLOR,URINE DARK YELLOW (YELLOW)
[2020-11-20 23:41] LABS: BASOPHILS # (AUTO) 0.1 K/uL (0.0-0.2); BASOPHILS % (AUTO) 0.8 % (0.0-2.0); EOSINOPHILS % (AUTO) 1.1 % (0.0-6.0); HEMATOCRIT 33 % (39-51); LYMPHOCYTES # (AUTO) 2.1 K/uL (0.8-4.8); MEAN CORPUSCULAR HGB CONC 33 g/dl (31.0-36.0); MEAN CORPUSCULAR VOLUME 84 fL (80-96); MONOCYTES # (AUTO) 0.7 K/uL (0.1-1.30); MONOCYTES % (AUTO) 5.4 % (2.0-12.0); NEUTROPHILS # (AUTO) 9.3 K/uL (1.8-8.9); NEUTROPHILS % (AUTO) 75.7 % (43.0-81.0); PLATELET COUNT (AUTO) 654 K/uL (150-450); RED BLOOD CELL COUNT(AUTO) 3.96 MIL/uL (4.5-6.0); WHITE BLOOD COUNT (AUTO) 12.3 K/uL (4.3-11.0)
--- NOTE | 2020-11-20 23:46 | NUR ---
taken to xray
[2020-11-20 23:55] LABS: ALANINE AMINOTRANSFERASE 30 U/L (12-78); ALBUMIN 3.2 g/dL (3.4-5.0); ALKALINE PHOSPHATASE 230 U/L (46-116); ASPARTATE AMINOTRANSFERASE 27 U/L (15-37); BILIRUBIN,DIRECT 0.2 mg/dL (0.0-0.2); BILIRUBIN,TOTAL 0.5 mg/dL (0.2-1.0); CALCIUM, SERUM 8.9 mg/dL (8.5-10.1); CARBON DIOXIDE 25 mmol/L (21-32); CHLORIDE 95 mmol/L (98-107); CREATININE 1.1 mg/dL (0.6-1.3); GLUCOSE 114 mg/dL (74-106); LIPASE 61 U/L (73-393); SODIUM SERUM 132 mmol/L (136-145); TOTAL PROTEIN, SERUM 9.5 g/dL (6.4-8.2); UREA NITROGEN, BLOOD 7 mg/dL (7-18)
[2020-11-20 23:56] LABS: ACETAMINOPHEN 0 ug/ml (10-30)
[2020-11-20 23:57] LABS: POTASSIUM 2.7 mmol/L (3.5-5.1)
[2020-11-21] MEDS ORDERED: POTASSIUM CHLORIDE 10 MEQ/50 ML PREMIXED IVPB FOR PERIPHERAL LINE IV ONE
--- NOTE | 2020-11-21 | NUR ---
1/4 bags of Potassium chloride started
[2020-11-21] MEDS ORDERED: POTASSIUM CL. PREMIX PERIPHER. 100 ML ONE ×2 (00:09→00:25)
[2020-11-21] MEDS ORDERED: POTASSIUM CHLORIDE 20 MEQ TAB.PRT.SR PO ONE ×3 (00:09)
--- NOTE | 2020-11-21 00:25 | NUR ---
stk med non admin, needed two more bags of Potassuim chloride to complete the full 40meq
--- NOTE | 2020-11-21 00:27 | NUR ---
us at bedside
[2020-11-21 00:30] LABS: BACTERIA,URINE Few /HPF (None Seen); MUCUS,URINE Moderate /LPF (None Seen); SQUAMOUS EPITHELIAL CELL,UR Few /HPF (None Seen); WBC,URINE 0-2 /HPF (0-3)
[2020-11-21] MEDS ORDERED: VANCOMYCIN 1 GM in IV D5W 250 ML IV ONE (01:00)
--- NOTE | 2020-11-21 01:00 | NUR ---
2/4 bags of potassium chloride 10meq hung
[2020-11-21] MEDS ORDERED: VANCOMYCIN 1 GM VIAL ONE (01:19)
--- NOTE | 2020-11-21 02:00 | NUR ---
3/4 bags of potassium chloride started
--- NOTE | 2020-11-21 02:21 | NUR ---
gave report to JOSE Clay for sheree
[2020-11-21] MEDS ORDERED: Z GUARD REMEDY 2 OZ OINT TP PRN (02:30)
[2020-11-21] MEDS ORDERED: CYCLOBENZAPRINE 10 MG TABLET PO PRN (02:30)
[2020-11-21] MEDS ORDERED: ONDANSETRON HCL/PF 4 MG/2 ML VIAL IVP PRN (02:30)
[2020-11-21] MEDS ORDERED: MAG HYDROX/AL HYDROX/SIMETH 30 ML UDC PO PRN (02:30)
[2020-11-21] MEDS ORDERED: ACETAMINOPHEN 325 MG TABLET PO PRN (02:30)
[2020-11-21] MEDS ORDERED: MAGNESIUM HYDROXIDE 30 ML UDC PO PRN (02:30)
[2020-11-21] MEDS ORDERED: METHOCARBAMOL (750MG) 750 MG TABLET PO PRN (02:30)
[2020-11-21] MEDS: MORPHINE SULFATE INJ 2 MG/ML DISP.SYRIN IV PRN ×5 (03:09→20:08)
--- NOTE | 2020-11-21 03:09 | NUR ---
PT C/O PAIN 01/10, VS WNL MORPHINE 0.5ML IV Q 4HR PRN ADMINISTERED PER PT REQUEST
--- NOTE | 2020-11-21 03:20 | NUR ---
4/4 bags of potassium chloride started. ENDORSED BY DALJIT NORWOOD RN
[2020-11-21 04:29] VITALS: BP 150/85
[2020-11-21] MEDS: IV NS 0.9% 1,000 ML IV PRN (04:56)
--- NOTE | 2020-11-21 06:00 | NUR ---
RN CLOSING NOTE PT IS IN BED AND AWAKE. NO SOB, NO PAIN. WILL ENDORSE TO ONCOMING NURSE FOR ANGEL..
[2020-11-21 06:24] LABS: BASOPHILS % (AUTO) 0.5 % (0.0-2.0); EOSINOPHILS % (AUTO) 0.8 % (0.0-6.0); HEMATOCRIT 30 % (39-51); LYMPHOCYTES # (AUTO) 2.4 K/uL (0.8-4.8); LYMPHOCYTES % (AUTO) 23.6 % (20.0-44.0); MEAN CORPUSCULAR HGB CONC 33 g/dl (31.0-36.0); MEAN CORPUSCULAR VOLUME 84 fL (80-96); MONOCYTES # (AUTO) 0.9 K/uL (0.1-1.30); MONOCYTES % (AUTO) 8.6 % (2.0-12.0); NEUTROPHILS # (AUTO) 6.7 K/uL (1.8-8.9); NEUTROPHILS % (AUTO) 66.5 % (43.0-81.0); PLATELET COUNT (AUTO) 591 K/uL (150-450); RED BLOOD CELL COUNT(AUTO) 3.56 MIL/uL (4.5-6.0); WHITE BLOOD COUNT (AUTO) 10.1 K/uL (4.3-11.0)
[2020-11-21 06:35] LABS: ALBUMIN 2.7 g/dL (3.4-5.0); BILIRUBIN,TOTAL 0.5 mg/dL (0.2-1.0); CALCIUM, SERUM 7.9 mg/dL (8.5-10.1); MAGNESIUM 1.8 mg/dL (1.8-2.4); PHOSPHORUS 2.9 mg/dL (2.5-4.9); POTASSIUM 3.7 mmol/L (3.5-5.1); TOTAL PROTEIN, SERUM 8.2 g/dL (6.4-8.2)
[2020-11-21 06:46] LABS: THYROID STIMULATING HORMONE 0.544 uIU/mL (0.358-3.74)
[2020-11-21] MEDS: CIPROFLOXACIN IV RTU 400 MG in PREMIX 1 EA IV SCH ×3 (07:07→21:01)
--- NOTE | 2020-11-21 07:50 | NUR ---
BASKETBALL PLAYER OPENING NOTES RECEIVED PT AWAKE IN BED. A/O X4. ABLE TO MAKE NEEDS KNOWN, C/O ACHING AND PULLING LOWER BACK PAIN, 10/10 SCALE. PRN MORPHINE 1MG/0.5ML IVP ADMINISTERED ORDERED. PT ON 02 VIA N/C AT 2LPM, TOLERATING WELL WITH NO SOB NOTED. ON EXTERNAL TELEMONITOR WITH CURRENT READING OF NSR, HR ON THE 90'S, NO C/O CARDIAC DISTRESS VOICED. PIV'S ON RAC G#20 AND RIGHT WRIST G#20 BOTH INTACT AND PATENT, IVF RUNNING ORDERED. SAFETY MEASURES IN PLACE: BED IN LOWEST LOCKED POSITION WITH SIDE-RAILS UP X2. CALL LIGHT AND BEDSIDE TABLE W/I EASY REACH OF PT.
[2020-11-21] MEDS: PANTOPRAZOLE 40 MG TABLET.DR PO SCH (07:54)
[2020-11-21 08:00] VITALS: BP 152/85
[2020-11-21] MEDS: LEVETIRACETAM (250 MG) 250 MG TABLET PO SCH ×2 (08:08→20:09)
[2020-11-21] MEDS: VANCOMYCIN 1.25 GM in IV D5W 250 ML IV SCH ×2 (09:55→17:34)
--- NOTE | 2020-11-21 10:31 | NUR ---
RN NOTES PT SEEN BY DR AUGUSTE THIS MORNING WITH ORDER TO DO MRI OF LUMBAR SPINE WITH CONTRAST. EXPLAINED PROCEDURE TO PT AND VERBALIZED UNDERSTANDING. CONSENT AND MRI QUESTIONNAIRE/CHECKLIST DONE AND SIGNED BY PT.
--- NOTE | 2020-11-21 11:06 | NUR ---
RN NOTES PT PICKED-UP FOR MRI OF LUMBAR SPINE VIA WHEELCHAIR.
--- NOTE | 2020-11-21 14:29 | NUR ---
MRI RESULT RECEIVED AND CALLED TO DR. AUGUSTE. RESULTS READ TO AND HE ORDERED TO CALL STEPH GIANG TO SEE THE PATIENT. CALLED DR. CHAUDHRY'S OFFICE, SPOKE TO JAYCEE, YI BARBOZA AND SAID WILL CALL BACK.
[2020-11-21 16:00] VITALS: BP 130/84
--- NOTE | 2020-11-21 16:10 | NUR ---
RN NOTES PT C/O OF ACHING PULLING PAIN ON LOWER BACK. 10/10 SCALE. PRN MORPHINE 1MG IVP ADMINISTERED AT 1608. WILL CONTINUE TO MONITOR AND REASSESS PT.
--- NOTE | 2020-11-21 16:15 | NUR ---
RN NOTE SPOKE WITH DR. CHAUDHRY RE LUMBAR MRI RESULT. DR. CHAUDHRY ORDERED NEW MRI OF THORACIC W/WO CONTRAST. ORDER NOTED. PT MADE AWARE AND IS AGREEABLE.
--- NOTE | 2020-11-21 18:55 | NUR ---
RN NOTE PT JUST CAME BACK FROM MRI AT THIS TIME. PT A/O X4, IN NO ACUTE DISTRESS.
--- NOTE | 2020-11-21 19:06 | NUR ---
INSPECTION AND TESTING SUPERVISOR CLOSING NOTES PT AWAKE IN BED, A/O X4, ABLE TO VERBALIZE NEEDS. PT ON ROOM AIR AT THIS TIME AND TOLERATING WELL WITH NO SOB NOTED. ON EXTERNAL TELEMONITOR WITH CURRENT READING OF NSR, HR 88, NO C/O CARDIAC DISTRESS VOICED. PIV'S ON RAC G#20 AND RIGHT WRIST G#20 BOTH INTACT AND PATENT, IVF RUNNING ORDERED. PT WITH EPISODES OF SEVERE PAIN TO LOWER BACK DURING THE SHIFT, RELIEVED BY PAIN MED MORPHINE. MADE COMFORTABLE IN BED. SAFETY MEASURES IN PLACE: BED IN LOWEST LOCKED POSITION WITH SIDE-RAILS UP X2. CALL LIGHT AND BEDSIDE TABLE W/I EASY REACH OF PT
--- NOTE | 2020-11-21 19:45 | NUR ---
RN NOTES RECEIVED PATIENT AWAKE ON HIS BED A/OX4, NO SOB, CALL LIGHT WITHIN [facility], [id number],WILL CONTINUE TO MONITOR
[2020-11-21 20:00] VITALS: BP 112/88
--- NOTE | 2020-11-21 20:17 | NUR ---
RN NOTES PATIENT COMPLAINED OF BACK PAIN- MORPHINE 1MG IV GIVEN ORDERED, V/ STABLE
[2020-11-21] MEDS: QUETIAPINE FUMARATE 25 MG TABLET PO SCH (21:04)
[2020-11-22] VITALS: BP 121/77
[2020-11-22] MEDS: VANCOMYCIN 1.25 GM in IV D5W 250 ML IV SCH ×2 (01:43→08:51)
--- NOTE | 2020-11-22 02:00 | NUR ---
RN NOTES LAB CALLED AND INFORMED ME THAT PATIENTS BLOOD CULTURE 3 BOTTLES, GRAM (+) IN CLUSTER COCCI , INFORMED DIOGENES JACOBSON-TABLET MAKING MACHINE OPERATOR HELPER ABOUT THE RESULT. NO ORDER WAS GIVEN, PER DIOGENES DUDLEY, PATIENT HAS AN ANTIBIOTICS, AND ID IS ALREADY FOLLOWING THE PATIENT
[2020-11-22] MEDS: CIPROFLOXACIN IV RTU 400 MG in PREMIX 1 EA IV SCH ×3 (04:47→22:25)
[2020-11-22 05:00] VITALS: BP 127/84
[2020-11-22] MEDS: MORPHINE SULFATE INJ 2 MG/ML DISP.SYRIN IV PRN ×4 (06:08→20:18)
--- NOTE | 2020-11-22 06:12 | NUR ---
RN NOTES COMPLAINED OF BACK PAIN- MORPHINE 1 MG IV GIVEN ORDERED/ VS STABLE
--- NOTE | 2020-11-22 06:42 | NUR ---
RN NOTES SLEEPING BUT AROUSBLE, IV LINE PATENT, DENIES PAIN, NO SOB MORNING CARE RENDERED, CALL LIGHT WITHIN REACH, [id number], PT. NEEDS ATTENDED
--- NOTE | 2020-11-22 07:44 | NUR ---
INTERNATIONAL FIRST OFFICER OPENING NOTE PATIENT IS IN BED RESTING, PATIENT IS IN PAIN, PATIENT IS IN OXYGEN 2L ON NC. PATIENT IS ON TELE MONITOR READING SR 70s. SAFETY PRECAUTIONS ARE ON, BED IS LOCKED IN THE LOWEST POSITION WITH SIDE RAILS UP, CALL LIGHT WITHIN REACH. WILL CONTINUE TO MONITOR CLOSELY.
[2020-11-22 08:00] VITALS: BP 140/82
[2020-11-22] MEDS: LEVETIRACETAM (250 MG) 250 MG TABLET PO SCH ×2 (08:19→22:24)
[2020-11-22] MEDS: PANTOPRAZOLE 40 MG TABLET.DR PO SCH (08:19)
[2020-11-22 08:38] LABS: CALCIUM, SERUM 8.5 mg/dL (8.5-10.1); CREATININE 0.9 mg/dL (0.6-1.3); PHOSPHORUS 3.2 mg/dL (2.5-4.9); POTASSIUM 3.5 mmol/L (3.5-5.1)
[2020-11-22] MEDS: HYDROCODONE/APAP 5/325MG TABLET PO PRN ×4 (08:46→23:01)
--- NOTE | 2020-11-22 08:51 | NUR ---
ELECTRONIC OPERATOR NOTE PATIENT VANCO TROUGH IS 21, ACCORDING TO PHARMACY HOLD 0900 DOSE OF VANCOMYCIN
[2020-11-22 09:03] LABS: BASOPHILS % (AUTO) 0.6 % (0.0-2.0); EOSINOPHILS % (AUTO) 3.6 % (0.0-6.0); HEMATOCRIT 31 % (39-51); HEMOGLOBIN 10.4 g/dL (13.5-17.5); LYMPHOCYTES # (AUTO) 2.1 K/uL (0.8-4.8); LYMPHOCYTES % (AUTO) 28.5 % (20.0-44.0); MEAN CORPUSCULAR HGB CONC 34 g/dl (31.0-36.0); MEAN CORPUSCULAR VOLUME 84 fL (80-96); MONOCYTES # (AUTO) 0.7 K/uL (0.1-1.30); MONOCYTES % (AUTO) 9.2 % (2.0-12.0); NEUTROPHILS # (AUTO) 4.3 K/uL (1.8-8.9); NEUTROPHILS % (AUTO) 58.1 % (43.0-81.0); PLATELET COUNT (AUTO) 606 K/uL (150-450); RED BLOOD CELL COUNT(AUTO) 3.68 MIL/uL (4.5-6.0); WHITE BLOOD COUNT (AUTO) 7.4 K/uL (4.3-11.0)
[2020-11-22] MEDS ORDERED: GADOTERATE MEGLUMINE 10 MMOL/20 ML VIAL IV ONE (11:21)
[2020-11-22 12:00] VITALS: BP 115/72
[2020-11-22 16:00] VITALS: BP 130/79
[2020-11-22] MEDS: VANCOMYCIN 1 GM in IV D5W 250 ML IV SCH (17:10)
--- NOTE | 2020-11-22 17:30 | NUR ---
PASSENGER ATTENDANT OPENING NOTES: RECEIVED PATIENT AWAKE IN BED, BED IN LOW POSITION, CALL LIGHTS WITHIN REACH, NO COMPLAIN OF PAIN AND DISCOMFORT, NO SOB OR ANY RESP. DISTRESS NOTED, ON TELE MONITORING WITH NO CHANGES HAS BEEN OBSERVED, KEPT CLEAN AND DRY, WILL CONTINUE TO MONITOR.
--- NOTE | 2020-11-22 18:27 | NUR ---
INDUSTRIAL ELECTRICAL ENGINEER CLOSING NOTE PATIENT IS IN BED RESTING, PATIENT IS IN PAIN, PATIENT IS IN OXYGEN 2L ON NC AND ROOM AIR, SATURATING WELL. PATIENT IS ON TELE MONITOR READING SR 70s. SAFETY PRECAUTIONS ARE ON, BED IS LOCKED IN THE LOWEST POSITION WITH SIDE RAILS UP, CALL LIGHT WITHIN REACH. ENDORSE PATIENT TO CAST SHELL GRINDER NURSE FOR ANGEL.
[2020-11-22 21:05] VITALS: BP 131/82
[2020-11-22] MEDS: QUETIAPINE FUMARATE 25 MG TABLET PO SCH (22:24)
[2020-11-23 00:20] VITALS: BP 128/84
[2020-11-23] MEDS: MORPHINE SULFATE INJ 2 MG/ML DISP.SYRIN IV PRN ×5 (01:39→20:19)
[2020-11-23] MEDS: VANCOMYCIN 1 GM in IV D5W 250 ML IV SCH ×3 (01:44→16:43)
[2020-11-23] MEDS: HYDROCODONE/APAP 5/325MG TABLET PO PRN ×3 (03:41→14:56)
[2020-11-23 04:37] VITALS: BP 125/76
[2020-11-23] MEDS: CIPROFLOXACIN IV RTU 400 MG in PREMIX 1 EA IV SCH (05:43)
[2020-11-23 06:05] LABS: CALCIUM, SERUM 8.6 mg/dL (8.5-10.1); CREATININE 0.9 mg/dL (0.6-1.3); POTASSIUM 3.5 mmol/L (3.5-5.1)
--- NOTE | 2020-11-23 07:15 | NUR ---
RN OPENING NOTE Received patient asleep in bed calm and relaxed no signs of distress. Tele reading SR. Vital signs within normal limits. Has R hand #20 running NS @ 75ml/hr. Patient is ambulatory but uses urinal. No co pain or discomfort at this time. Safety measures maintained. Call light within reach. Will cont to monitor.
--- NOTE | 2020-11-23 07:50 | NUR ---
RN CLOSING NOTES: PATIENT PLACE IN BED COMFORTABLY BED IN LOW POSITION, CALL LIGHTS WITHIN REACH, A/O X4 ABLE TO EXPRESS NEEDS, ON TELE MONITORING, NO CHANGES OBSERVED, PATIENT KEPT CLEAN AND DRY ALL NEEDS MET, WILL CONTINUE TO MONITOR.
[2020-11-23 08:00] VITALS: BP 125/77
[2020-11-23] MEDS: PANTOPRAZOLE 40 MG TABLET.DR PO SCH (08:33)
[2020-11-23] MEDS: LEVETIRACETAM (250 MG) 250 MG TABLET PO SCH ×2 (08:34→20:18)
--- NOTE | 2020-11-23 08:37 | NUR ---
Charles: Jseus Merino from Pharmacy OK to give Vanco dose now.
--- NOTE | 2020-11-23 10:42 | NUR ---
FOrgot to scan BigML . Given at 8:33am.
[2020-11-23] MEDS: IV NS 0.9% 1,000 ML IV PRN (14:01)
[2020-11-23] MEDS: CIPROFLOXACIN HCL 250 MG TABLET PO SCH (16:43)
--- NOTE | 2020-11-23 18:22 | NUR ---
Moved patient to room 313-2 by ambulation with all belongings.
--- NOTE | 2020-11-23 18:39 | NUR ---
RN CLOSING NOTE Patient in bed awake on room air tolerating well. Tele SR 80. Vital signs within normal limits. Complains of pain and tingling sensation on lower extremities especially when changing position. Pain meds given as ordered. All due meds given. No adverse reaction to ATB therapy. Safety measures maintained. Will endorse to body shop technician nurse for sheree.
--- NOTE | 2020-11-23 19:53 | NUR ---
FINGERNAIL TECHNICIAN OPENING NOTES: RECEIVED PATIENT IN BED, AWAKE, NO COMPLAIN OF PAIN AND DISCOMFORT AT THIS TIME, AMBULATORY, A/O X4 ON TELE MONITORING WITH READING OF SR-78 WITH JACE MIDLINE AT 75/ML PERR HOUR, KEPT CLEAN AND DRY, ALL NEED MET, WILL CONTINUE TO MONITOR.
[2020-11-23 20:00] VITALS: BP 140/90
[2020-11-23] MEDS: QUETIAPINE FUMARATE 25 MG TABLET PO SCH (22:14)
[2020-11-23 23:47] VITALS: BP 134/74
[2020-11-24] MEDS: MORPHINE SULFATE INJ 2 MG/ML DISP.SYRIN IV PRN ×7 (00:32→23:50)
[2020-11-24] MEDS: VANCOMYCIN 1 GM in IV D5W 250 ML IV SCH ×3 (00:33→21:16)
[2020-11-24 04:00] VITALS: BP 134/74
--- NOTE | 2020-11-24 06:25 | NUR ---
SHINGLE BOLT CUTTER CLOSING NOTES: PATIENT SLEEP IN BED COMFORTABLY, BED IN LOW POSITION, CALL LIGHTS WITHIN REACH, NO COMPLAIN OF PAIN AND DISCOMFORT AT THIS TIME, ON TELEMONITORING WITH READING OF SR 78 PATIENT WAS A/O X4 ABLE TO EXPRESS NEEDS, AMBULATORY , ALL NEEDS MET, KEPT CLEAN AND DRY, ENDORSE TO INCOMING SHIFT.
[2020-11-24] MEDS: PANTOPRAZOLE 40 MG TABLET.DR PO SCH (07:30)
[2020-11-24] MEDS: LEVETIRACETAM (250 MG) 250 MG TABLET PO SCH ×2 (09:09→21:16)
[2020-11-24] MEDS: CIPROFLOXACIN HCL 250 MG TABLET PO SCH ×2 (09:14→16:43)
[2020-11-24 09:16] LABS: CALCIUM, SERUM 8.7 mg/dL (8.5-10.1); CREATININE 0.8 mg/dL (0.6-1.3); POTASSIUM 3.4 mmol/L (3.5-5.1)
--- NOTE | 2020-11-24 20:14 | NUR ---
MS RN OPENING NOTES: RECEIVED PATIENT AWAKE IN BED, BED IN LOW POSITION, CALL LIGHTS WITHIN REACH, NO COMPLAIN OF PAIN AND DISCOMFORT AT THIS TIME, PATIENT IS A/O X 4 AMBULATORY, WITH WITH R WRIST #20, RU MIDLINE INFUSING WELL, ALL NEEDS MET, KEPT CLEAN AND DRY, WILL CONTINUE TO MONITOR.
[2020-11-24 20:25] VITALS: BP 159/98
[2020-11-24] MEDS: QUETIAPINE FUMARATE 25 MG TABLET PO SCH (21:16)
[2020-11-24] MEDS ORDERED: METHOCARBAMOL (750MG) 750 MG TABLET ONE (22:51)
[2020-11-25] MEDS: MORPHINE SULFATE INJ 2 MG/ML DISP.SYRIN IV PRN ×2 (05:45→10:03)
--- NOTE | 2020-11-25 06:29 | NUR ---
RN CLOSING NOTES: PATIENT SLEEP IN ED COMFORTABLY, BED IN LOW POSITION, CALL LIGHTS WITHIN REACH, NO COMPLAIN OF PAIN AND DISCOMFORT AT THIS TIME, NO SOB NOTED, PATIENT IS A/O X4 AMBULATORY AND ABLE TO MAKE NEEDS KNOWN, KPET CLEAN AND DRY, ALL NEEDS ATTENDEDENDORSE TO INCOMING SHIFT.
[2020-11-25 07:38] LABS: CALCIUM, SERUM 8.6 mg/dL (8.5-10.1); CREATININE 0.9 mg/dL (0.6-1.3); POTASSIUM 3.4 mmol/L (3.5-5.1)
[2020-11-25 08:01] VITALS: BP 120/68
[2020-11-25] MEDS: PANTOPRAZOLE 40 MG TABLET.DR PO SCH (09:12)
[2020-11-25] MEDS: VANCOMYCIN 1 GM in IV D5W 250 ML IV SCH ×2 (09:13→20:39)
[2020-11-25] MEDS: CIPROFLOXACIN HCL 250 MG TABLET PO SCH (09:13)
[2020-11-25] MEDS: LEVETIRACETAM (250 MG) 250 MG TABLET PO SCH ×2 (09:13→21:01)
[2020-11-25] MEDS ORDERED: POTASSIUM CHLORIDE 20 MEQ TAB.PRT.SR PO SCH (09:30)
[2020-11-25] MEDS: HYDROMORPHONE 1 MG/1 ML DISP.SYRIN IV PRN ×4 (13:00→22:37)
[2020-11-25 16:15] VITALS: BP 154/98
--- NOTE | 2020-11-25 19:30 | NUR ---
MS RN OPENING NOTES. RECEIVED REPORT FROM JOSE CRAWFORD. RECEIVED PATIENT IN BED, AWAKE, NOT IN ANY FORM OF ACUTE DISTRESS NOTED. ON ROOM AIR TOLERATING WELL. WITH COMPLAINTS OF BACK PAIN WITH PAIN SCALE OF 9/10. PATIENT IS FOR POSSIBLE DECOMPRESSION LAMINECTOMY TOMORROW (11/26/2020), INSTRUCTED ON NPO POST MIDNIGHT. PATIENT VERBALIZED UNDERSTANDING OF INSTRUCTIONS GIVEN. BLOOD TRANSFUSION CONSENT SECURED ORDERED. SAFETY PRECAUTIONS IN PLACE: BED ON LOWEST LOCKED POSITION, KEPT SIDE RAILS UP X2, CALL LIGHT WITHIN EASY REACH. WILL CONTINUE TO MONITOR PATIENT'S CURRENT STATUS.
[2020-11-25 20:00] VITALS: BP 140/95
[2020-11-25] MEDS: QUETIAPINE FUMARATE 25 MG TABLET PO SCH (21:24)
--- NOTE | 2020-11-25 22:40 | NUR ---
PAIN MANAGEMENT PATIENT HAS C/O OF BACK PAIN WITH PAIN SCALE OF 9/10, DUE DILAUDID GIVEN ORDERED. WILL CONTINUE TO MONITOR PATIENT'S PAIN STATUS.
[2020-11-26] VITALS (9 sets, daily range): BP systolic 100–119; BP diastolic 58–79
[2020-11-26 06:27] LABS: BASOPHILS # (AUTO) 0.1 K/uL (0.0-0.2); BASOPHILS % (AUTO) 0.8 % (0.0-2.0); EOSINOPHILS % (AUTO) 5.4 % (0.0-6.0); HEMATOCRIT 32 % (39-51); HEMOGLOBIN 10.9 g/dL (13.5-17.5); LYMPHOCYTES # (AUTO) 2.3 K/uL (0.8-4.8); LYMPHOCYTES % (AUTO) 31.2 % (20.0-44.0); MEAN CORPUSCULAR HGB CONC 34 g/dl (31.0-36.0); MEAN CORPUSCULAR VOLUME 83 fL (80-96); MONOCYTES # (AUTO) 0.6 K/uL (0.1-1.30); MONOCYTES % (AUTO) 8.6 % (2.0-12.0); NEUTROPHILS # (AUTO) 3.9 K/uL (1.8-8.9); PLATELET COUNT (AUTO) 725 K/uL (150-450); RED BLOOD CELL COUNT(AUTO) 3.88 MIL/uL (4.5-6.0); WHITE BLOOD COUNT (AUTO) 7.3 K/uL (4.3-11.0)
--- NOTE | 2020-11-26 06:32 | NUR ---
MS RN CLOSING NOTES PATIENT IN BED, AWAKE, NOT IN ANY FORM OF ACUTE DISTRESS NOTED. ON ROOM AIR TOLERATING WELL. WITH COMPLAINTS OF BACK PAIN WITH PAIN SCALE OF 3/10. ON NPO EXCEPT SIPS OF WATER WITH MEDS. CONSENT FOR PROCEDURE SECURED, PARTIAL CHECKLIST DONE. SAFETY PRECAUTIONS IN PLACE AND MAINTAINED DURING THE SHIFT: BED ON LOWEST LOCKED POSITION, KEPT SIDE RAILS UP X2, CALL LIGHT WITHIN EASY REACH. WILL CONTINUE TO MONITOR PATIENT'S CURRENT STATUS. ALL NEEDS ATTENDED AND MET. WILL ENDORSE TO MORNING SHIFT NURSE FOR ANGEL.
[2020-11-26 06:52] LABS: CREATININE 0.9 mg/dL (0.6-1.3); MAGNESIUM 1.9 mg/dL (1.8-2.4); PHOSPHORUS 3.7 mg/dL (2.5-4.9); POTASSIUM 3.4 mmol/L (3.5-5.1)
[2020-11-26] MEDS: PANTOPRAZOLE 40 MG TABLET.DR PO SCH (07:30)
[2020-11-26] MEDS: VANCOMYCIN 1 GM in IV D5W 250 ML IV SCH ×2 (08:24→21:25)
[2020-11-26] MEDS: HYDROMORPHONE 1 MG/1 ML DISP.SYRIN IV PRN ×3 (08:24→21:10)
[2020-11-26] MEDS ORDERED: POTASSIUM CHLORIDE 20 MEQ TAB.PRT.SR PO ONE ×2 (08:30→15:00)
[2020-11-26] MEDS ORDERED: MIDAZOLAM HCL 2 MG/2ML VIAL ONE ×2 (08:31)
[2020-11-26] MEDS ORDERED: ROCURONIUM BROMIDE 50 MG/5 ML ONE ×2 (08:31→10:10)
[2020-11-26] MEDS ORDERED: PROPOFOL 0 ML ONE (08:31)
[2020-11-26] MEDS ORDERED: DESFLURANE 240 ML BOTTLE IH ONE (08:32)
[2020-11-26] MEDS ORDERED: PROPOFOL 100 ML ONE ×2 (08:32)
[2020-11-26] MEDS ORDERED: HEMOSTATIC MATRIX 8 ML 1 EACH PAD MC ONE ×2 (08:36→11:07)
[2020-11-26] MEDS ORDERED: LIDOCAINE HCL/PF 1% 30 ML SDV ONE (08:36)
[2020-11-26] MEDS ORDERED: METHYLENE BLUE 10 ML VIAL ONE (08:36)
[2020-11-26] MEDS ORDERED: methylPREDNISolone ACETATE 80 MG/ML VIAL ONE (08:37)
[2020-11-26] MEDS ORDERED: BUPIVACAINE MPF 0.5% W/EPI INJ 30 ML VIAL ONE (08:37)
[2020-11-26] MEDS ORDERED: CEFAZOLIN 1 GM ONE (08:38)
--- NOTE | 2020-11-26 08:40 | NUR ---
m/s rn transitional: notes picked via bed by o.r. staff with chart at this time.
[2020-11-26] MEDS ORDERED: HYDROMORPHONE INJ 2 MG/ML DISP.SYRIN ONE (09:02)
[2020-11-26] MEDS ORDERED: BACITRACIN ZINC OINT (15 GM) 15 GM TUBE TP ONE (12:19)
[2020-11-26] MEDS ORDERED: BACITRACIN OPHTH OINT 3.5 GM TUBE ONE (12:19)
[2020-11-26] MEDS ORDERED: BACITRACIN ZINC OINT PACKET 1 EA PACKET TP ONE (12:20)
--- NOTE | 2020-11-26 14:25 | NUR ---
m/s director of resource development: notes received pt from recovery room with dx: s/p [id number] decompression/fixation/fusion for osteomyelitis. pt sleepy, but arousable. f/c in place and hemovac in place. no restrictions per report. s/p 1 unit of prbc in the o.r. appears comfortable. on o2 at 3l/min via n/c, satting at 95%. vss, afebrile. will continue to monitor.
[2020-11-26] MEDS: METHOCARBAMOL (500MG) 500 MG TABLET PO SCH ×2 (15:14→21:43)
[2020-11-26] MEDS: LEVETIRACETAM (250 MG) 250 MG TABLET PO SCH ×2 (15:14→21:25)
--- NOTE | 2020-11-26 16:00 | NUR ---
m/s account receivable associate: notes resting comfortable in bed. no distress noted. hemovac on back intact with dressing and draining with sanguineous. call light within reach. will continue to monitor.
[2020-11-26] MEDS: KETOROLAC TROMETHAMINE INJ 30 MG/ML VIAL IV SCH ×2 (17:58→23:34)
[2020-11-26] MEDS: HYDROCODONE/APAP 5/325MG TABLET PO PRN (19:11)
--- NOTE | 2020-11-26 19:15 | NUR ---
m/s explosive expert: notes report given to my (rn) for continuity of care.
--- NOTE | 2020-11-26 19:30 | NUR ---
MS RN OPENING NOTES. RECEIVED PATIENT IN BED, AWAKE, NOT IN ANY FORM OF ACUTE DISTRESS NOTED. ON ROOM AIR TOLERATING WELL. WITH COMPLAINTS OF BACK PAIN WITH PAIN SCALE OF 9/10. PAIN MEDICATIONS GIVEN ORDERED. IV ACCESS ON JACE MIDLINE PATENT AND INTACT, ONGOING NS 1L X 75 CC/HR INFUSING WELL, NO REDNESS, NO INFILTRATION NOTED. WITH HEMOVAC ON PATIENT'S BACK INTACT, DRAINING SANGUINEOUS DRAINAGE. SAFETY PRECAUTIONS IN PLACE: BED ON LOWEST LOCKED POSITION, KEPT SIDE RAILS UP X2, CALL LIGHT WITHIN EASY REACH. WILL CONTINUE TO MONITOR PATIENT'S CURRENT STATUS.
[2020-11-26] MEDS: QUETIAPINE FUMARATE 25 MG TABLET PO SCH (21:25)
[2020-11-26] MEDS: IV NS 0.9% 1,000 ML IV PRN (22:22)
[2020-11-27] MEDS: HYDROMORPHONE 1 MG/1 ML DISP.SYRIN IV PRN ×10 (00:11→23:25)
[2020-11-27] MEDS: METHOCARBAMOL (500MG) 500 MG TABLET PO SCH ×4 (03:00→21:05)
[2020-11-27] MEDS: KETOROLAC TROMETHAMINE INJ 30 MG/ML VIAL IV SCH ×3 (05:02→17:52)
--- NOTE | 2020-11-27 06:35 | NUR ---
MS RN CLOSING NOTES PATIENT IN BED, AWAKE, NOT IN ANY FORM OF ACUTE DISTRESS NOTED. ON ROOM AIR TOLERATING WELL. WITH COMPLAINTS OF BACK PAIN WITH PAIN SCALE OF 4/10. PAIN MEDICATIONS GIVEN ORDERED. IV ACCESS ON JACE MIDLINE PATENT AND INTACT, ONGOING NS 1L X 75 CC/HR INFUSING WELL, NO REDNESS, NO INFILTRATION NOTED. WITH HEMOVAC ON PATIENT'S BACK INTACT, DRAINING SANGUINEOUS DRAINAGE. WITH FC CONNECTED TO URINE BAG DRAINING CLOUDY URINE. SAFETY PRECAUTIONS IN PLACE: BED ON LOWEST LOCKED POSITION, KEPT SIDE RAILS UP X2, CALL LIGHT WITHIN EASY REACH. ALL NEEDS ATTENDED, WILL ENDORSE TO MORNING SHIFT NURSE FOR ANGEL.
[2020-11-27 06:51] LABS: BASOPHILS % (AUTO) 0.3 % (0.0-2.0); EOSINOPHILS % (AUTO) 0.1 % (0.0-6.0); HEMATOCRIT 25 % (39-51); HEMOGLOBIN 8.5 g/dL (13.5-17.5); LYMPHOCYTES # (AUTO) 1.9 K/uL (0.8-4.8); LYMPHOCYTES % (AUTO) 15.2 % (20.0-44.0); MEAN CORPUSCULAR HGB CONC 34 g/dl (31.0-36.0); MEAN CORPUSCULAR VOLUME 84 fL (80-96); MONOCYTES # (AUTO) 0.9 K/uL (0.1-1.30); MONOCYTES % (AUTO) 7.1 % (2.0-12.0); NEUTROPHILS # (AUTO) 9.5 K/uL (1.8-8.9); NEUTROPHILS % (AUTO) 77.3 % (43.0-81.0); PLATELET COUNT (AUTO) 621 K/uL (150-450); RED BLOOD CELL COUNT(AUTO) 2.99 MIL/uL (4.5-6.0); WHITE BLOOD COUNT (AUTO) 12.3 K/uL (4.3-11.0)
--- NOTE | 2020-11-27 07:30 | NUR ---
PT RECEIVED RESTING COMFORTABLY IN BED. NO S/S OR C/O PAIN OR DISTRESS NOTED. SIDE RAILS UP X2, ALL LIGHT LEFT WITHIN REACH. WILL CONTINUE PLAN OF CARE.
[2020-11-27 07:53] LABS: CALCIUM, SERUM 8.2 mg/dL (8.5-10.1); CREATININE 0.9 mg/dL (0.6-1.3); POTASSIUM 4.2 mmol/L (3.5-5.1)
[2020-11-27 08:00] VITALS: BP 125/75
[2020-11-27] MEDS: LEVETIRACETAM (250 MG) 250 MG TABLET PO SCH ×2 (08:14→21:05)
[2020-11-27] MEDS: VANCOMYCIN 1 GM in IV D5W 250 ML IV SCH ×2 (08:14→21:05)
[2020-11-27] MEDS: PANTOPRAZOLE 40 MG TABLET.DR PO SCH (08:14)
--- NOTE | 2020-11-27 16:11 | NUR ---
MED WASTED DILAUDID SPILLED. JACKIE GARCIA WITNESSED WASTE.
[2020-11-27 16:32] VITALS: BP 122/76
--- NOTE | 2020-11-27 18:50 | NUR ---
CHANGE OF SHIFT REPORT PT RESTING COMFORTABLY IN BED. NO S/S OR C/O PAIN OR DISTRESS NOTED. SIDE RAILS UP X2, CALL LIGHT LEFT WITHIN REACH. PT KEPT CLEAN, DRY, AND COMFORTABLE. NO SIGNIFICANT CHANGES SINCE PREVIOUS SHIFT. WILL GIVE REPORT TO ANN GARCIA.
--- NOTE | 2020-11-27 19:40 | NUR ---
MS/RN OPENING NOTE RECEIVED PATIENT RESTING IN BED. AWAKE, ALERT AND ORIENTED X 4. ABLE TO MAKE NEEDS KNOWN. DENIES PAIN AT THIS TIME. CONTINUES ON 2L O2 VIA NC WITH NO S/SX OF RESPIRATORY DISTRESS NOTED. IV ACCESS TO RIGHT UPPER ARM MIDLINE INTACT AND PATENT. CONTINUES ON IVF NS 0.9% @ 75ML/HR. CONTINUES ON SOFT DIET WITH NO S/SX OF NAUSEA OR VOMITING NOTED. GRULLON CATHETER IN PLACE DRAINING TO GRAVITY. WOUND VAC IN PLACE AND INTACT WITH MINIMAL DRAINAGE NOTED. CALL LIGHT WITHIN REACH. ASPIRATION, FALL AND SAFETY PRECAUTIONS MAINTAINED. WILL CONTINUE TO MONITOR.
[2020-11-27 20:02] VITALS: BP 120/83
[2020-11-27] MEDS: QUETIAPINE FUMARATE 25 MG TABLET PO SCH (21:06)
--- NOTE | 2020-11-27 21:23 | NUR ---
MS/RN NOTE PATIENT WITH C/O BACK PAIN 12/10 - ADMINISTERED PRN DILAUDID WITH PENDING EFFECT.
[2020-11-28] MEDS: HYDROMORPHONE 1 MG/1 ML DISP.SYRIN IV PRN ×7 (01:26→21:35)
[2020-11-28] MEDS: METHOCARBAMOL (500MG) 500 MG TABLET PO SCH ×4 (03:16→21:24)
[2020-11-28] MEDS: KETOROLAC TROMETHAMINE INJ 30 MG/ML VIAL IV SCH ×4 (05:26→17:30)
--- NOTE | 2020-11-28 06:40 | NUR ---
MS/RN CLOSING NOTE PATIENT CURRENTLY RESTING IN BED. AWAKE, ALERT AND ORIENTED X 4. ABLE TO MAKE NEEDS KNOWN. DENIES PAIN AT THIS TIME. CONTINUES ON 2L O2 VIA NC WITH NO S/SX OF RESPIRATORY DISTRESS NOTED. IV ACCESS TO RIGHT UPPER ARM MIDLINE INTACT AND PATENT. CONTINUES ON IVF NS 0.9% @ 75ML/HR. CONTINUES ON SOFT DIET WITH NO S/SX OF NAUSEA OR VOMITING NOTED. GRULLON CATHETER IN PLACE DRAINING TO GRAVITY. GRULLON CATHETER OUTPUT WAS 800CC. HEMO VAC IN PLACE AND INTACT WITH MINIMAL DRAINAGE NOTED. HEMO VAC OUTPUT WAS 50CC SANGUINOUS DRAINAGE. CALL LIGHT WITHIN REACH. ASPIRATION, FALL AND SAFETY PRECAUTIONS MAINTAINED. WILL ENDORSE PLAN OF CARE TO ONCOMING SHIFT.
[2020-11-28 07:03] LABS: BASOPHILS # (AUTO) 0.1 K/uL (0.0-0.2); BASOPHILS % (AUTO) 0.8 % (0.0-2.0); EOSINOPHILS % (AUTO) 3.2 % (0.0-6.0); HEMATOCRIT 28 % (39-51); HEMOGLOBIN 9.4 g/dL (13.5-17.5); LYMPHOCYTES # (AUTO) 2.7 K/uL (0.8-4.8); LYMPHOCYTES % (AUTO) 28.6 % (20.0-44.0); MEAN CORPUSCULAR HGB CONC 34 g/dl (31.0-36.0); MEAN CORPUSCULAR VOLUME 85 fL (80-96); MONOCYTES # (AUTO) 0.7 K/uL (0.1-1.30); MONOCYTES % (AUTO) 7.2 % (2.0-12.0); NEUTROPHILS # (AUTO) 5.8 K/uL (1.8-8.9); NEUTROPHILS % (AUTO) 60.2 % (43.0-81.0); PLATELET COUNT (AUTO) 626 K/uL (150-450); RED BLOOD CELL COUNT(AUTO) 3.29 MIL/uL (4.5-6.0); WHITE BLOOD COUNT (AUTO) 9.6 K/uL (4.3-11.0)
[2020-11-28 07:12] LABS: CALCIUM, SERUM 8.4 mg/dL (8.5-10.1); CREATININE 0.9 mg/dL (0.6-1.3); POTASSIUM 3.8 mmol/L (3.5-5.1)
--- NOTE | 2020-11-28 07:13 | NUR ---
MS RN OPENING NOTE RECEIVED PATIENT AWAKE IN BED IN NO ACUTE SIGNS OF DISTRESS. A/O X 4. ABLE TO MAKE NEEDS KNOWN, DENIES PAIN AT THIS TIME. ON O2 VIA N/C @ 2LPM, TOLERATING WELL WITH NO SOB NOTED. RIGHT UPPER ARM MIDLINE INTACT AND PATENT, IVF OF NS @ 75ML/HR INFUSING WELL. GRULLON CATHETER IN PLACE DRAINING CLEAR YELLOW URINE VIA GRAVITY. HEMO VAC ON MID BACK IN PLACE WITH MINIMAL BLOODY DRAINAGE NOTED. SAFETY MEASURES IN PLACE: BED IN LOWEST LOCKED POSITION WITH SR UP X2. CALL LIGHT WITHIN REACH.WILL CONTINUE TO MONITOR.
[2020-11-28 08:00] VITALS: BP 122/74
[2020-11-28] MEDS: PANTOPRAZOLE 40 MG TABLET.DR PO SCH (08:31)
[2020-11-28] MEDS: LEVETIRACETAM (250 MG) 250 MG TABLET PO SCH ×2 (08:32→21:24)
--- NOTE | 2020-11-28 09:24 | NUR ---
RN NOTES STEPH NEVES CAME AND REMOVED PT'S HEMOVAC ON HIS BACK AND PLACED PRESSURE DRESSING AT SITE. HE ALSO ORDER HEPARIN 5,000U BID TO START THIS AFTERNOON. WILL CONTINUE TO MONITOR.
[2020-11-28] MEDS: VANCOMYCIN 1 GM in IV D5W 250 ML IV SCH ×2 (10:20→21:24)
[2020-11-28] MEDS: HYDROCODONE/APAP 5/325MG TABLET PO PRN (15:55)
[2020-11-28 16:00] VITALS: BP 130/82
[2020-11-28] MEDS: HEPARIN SODIUM, PORCINE 5000 UNITS/1 ML VIAL SQ SCH (17:32)
--- NOTE | 2020-11-28 18:41 | NUR ---
MS RN CLOSING NOTES PATIENT IN BED RESTING AT MODERATE HIGH BACKREST POSITION. A/O X 4. ABLE TO MAKE NEEDS KNOWN. PAIN MEDS GIVEN ORDERED. SURGICAL SITES ON BACK INTACT WITH NO ACTIVE BLEEDING NOTED. ON ROOM AIR ATHIS TIME, TOLERATING WELL WITH NO SOB NOTED. RIGHT UPPER ARM MIDLINE AND IV ACCESS ON LAC G#18 BOTH INTACT AND PATENT, IVF OF NS @ 75ML/HR INFUSING WELL TO JACE MIDLINE. GRULLON CATHETER IN PLACE DRAINING CLEAR YELLOW URINE TO BEDSIDE URINARY BAG, GRULLON CARE DONE. ALL NEEDS AND CARE ATTENDED WELL. SAFETY MEASURES KEPT IN PLACE: BED IN LOWEST LOCKED POSITION WITH SR UP X2. CALL LIGHT WITHIN REACH. WILL ENDORSE ANGEL TO CARPENTER FORM NURSE.
--- NOTE | 2020-11-28 19:45 | NUR ---
RN OPENING NOTES: RECEIVED PATIENT SLEEP IN BED COMFORTABLY, BED IN LOW POSITION, CALL LIGHTS WITHIN REACH, NO COMPLAIN OF PAIN AND DISCOMFORT AT THIS TIME, PATIENT IS S/P POST LAMINECTOMY, NO BLEEDING WAS OBSERVED, ON SOFT DIET, PATIENT ON GRULLON CATHETER AT 100CC OUTPUT, WITH JACE MID LINE, WITH LAC# 18 SL , PATIENT KEPT CLEAN AND DRY, ALL NEEDS MET, WILL CONTINUE TO MONITOR.
[2020-11-28 20:00] VITALS: BP 122/61
--- NOTE | 2020-11-28 20:54 | NUR ---
RN NOTES REMINDED DR WEINSTEIN ABOUT PT. PAIN MANAGEMENT AND RESPOND THAT HES GOING TO VISIT PATIENT TOMM IN AM
[2020-11-28] MEDS: QUETIAPINE FUMARATE 25 MG TABLET PO SCH (21:24)
[2020-11-29] MEDS: KETOROLAC TROMETHAMINE INJ 30 MG/ML VIAL IV SCH ×4 (00:26→17:39)
[2020-11-29] MEDS: HYDROMORPHONE 1 MG/1 ML DISP.SYRIN IV PRN ×9 (01:33→21:59)
[2020-11-29] MEDS: METHOCARBAMOL (500MG) 500 MG TABLET PO SCH ×4 (03:05→20:53)
[2020-11-29] MEDS: HEPARIN SODIUM, PORCINE 5000 UNITS/1 ML VIAL SQ SCH ×2 (05:51→09:18)
[2020-11-29 06:51] LABS: CALCIUM, SERUM 8.3 mg/dL (8.5-10.1); CREATININE 0.9 mg/dL (0.6-1.3); POTASSIUM 3.7 mmol/L (3.5-5.1)
[2020-11-29 06:56] LABS: BASOPHILS # (AUTO) 0.1 K/uL (0.0-0.2); BASOPHILS % (AUTO) 0.6 % (0.0-2.0); EOSINOPHILS % (AUTO) 5.1 % (0.0-6.0); HEMATOCRIT 31 % (39-51); HEMOGLOBIN 10.3 g/dL (13.5-17.5); LYMPHOCYTES # (AUTO) 2.9 K/uL (0.8-4.8); MEAN CORPUSCULAR HGB CONC 33 g/dl (31.0-36.0); MEAN CORPUSCULAR VOLUME 85 fL (80-96); MONOCYTES # (AUTO) 0.7 K/uL (0.1-1.30); MONOCYTES % (AUTO) 7.7 % (2.0-12.0); NEUTROPHILS # (AUTO) 5.2 K/uL (1.8-8.9); NEUTROPHILS % (AUTO) 55.6 % (43.0-81.0); PLATELET COUNT (AUTO) 655 K/uL (150-450); RED BLOOD CELL COUNT(AUTO) 3.65 MIL/uL (4.5-6.0); WHITE BLOOD COUNT (AUTO) 9.4 K/uL (4.3-11.0)
--- NOTE | 2020-11-29 07:01 | NUR ---
RN CLOSING NOTES: PATIENT SLEEP IN BED COMFORTABLY BED IN LOW POSITION, CALL LIGHTS WITHIN REACH, NO COMPLAIN OF PAIN AND DISCOMFORT AT THIS TIME, A/O X4 ABLE TO EXPRESS NEEDS, ON GRULLON CATHETER INFUSING WELL, WITH LFA #22 IV LINE SL, WITH MIDLINE AT JACE PATIENT KEPT CLEAN AND DRY, ALL NEEDS MET, ENDORSE TO INCOMING SHIFT.
--- NOTE | 2020-11-29 07:12 | NUR ---
MS RN OPENING NOTE RECEIVED PATIENT ON BED, ALERT AND ORIENTED X 4. ABLE TO MAKE NEEDS KNOWN. ENCOURAGED TO DO DEEP BREATHING EXERCISES. PATIENT ON ROOM AIR WITH EQUAL AND UNLABORED BREATHING. WITH NO SIGNS OF RESPIRATORY DISTRESS. WITH RIGHT UPPER ARM MIDLINE AND LEFT AC G18 WITH NORMAL SALINE RUNNING AT 75ML/HR INFUSING WELL. WITH MIDBACK SURGICAL SITE WITH ORDER TO JUST KEEP IT OPEN TO AIR. MAINTAINED ON MODERATE TO HIGH BACK REST. CALL LIGHT WITHIN REACH AT ALL TIMES. SAFETY PRECAUTIONS MAINTAINED WITH BED LOCKED AND AT LOWEST POSITION. WILL CONTINUE TO MONITOR.
[2020-11-29 08:00] VITALS: BP 116/76
[2020-11-29] MEDS: LEVETIRACETAM (250 MG) 250 MG TABLET PO SCH ×2 (09:08→20:52)
[2020-11-29] MEDS: PANTOPRAZOLE 40 MG TABLET.DR PO SCH (09:09)
[2020-11-29] MEDS: ANCEF 1 GM/50 ML D5W IV SCH ×2 (12:38→20:52)
[2020-11-29 16:33] VITALS: BP 134/76
[2020-11-29] MEDS: IV NS 0.9% 1,000 ML IV PRN (17:39)
--- NOTE | 2020-11-29 19:00 | NUR ---
MS RN CLOSING NOTE RECEIVED PATIENT ON BED, ALERT AND ORIENTED X 4. ABLE TO MAKE NEEDS KNOWN. ENCOURAGED TO DO DEEP BREATHING EXERCISES. PATIENT ON ROOM AIR WITH EQUAL AND UNLABORED BREATHING. WITH NO SIGNS OF RESPIRATORY DISTRESS. WITH RIGHT UPPER ARM MIDLINE AND LEFT AC G18 WITH NORMAL SALINE RUNNING AT 75ML/HR INFUSING WELL. WITH MIDBACK SURGICAL SITE WITH ORDER TO JUST KEEP IT OPEN TO AIR. MAINTAINED ON MODERATE TO HIGH BACK REST. CALL LIGHT WITHIN REACH AT ALL TIMES. SAFETY PRECAUTIONS MAINTAINED WITH BED LOCKED AND AT LOWEST POSITION. WILL ENDORSE PATIENT TO NEXT SHIFT FOR CONTINUITY OF CARE.
--- NOTE | 2020-11-29 19:35 | NUR ---
MS RN NOTES PATIENT IN BED. A/OX4. NO S/S OF APPARENT DISTRESS. NS RUNNING AT 75 ML/HR THIS TIME. GRULLON CATHETER DRAINING CLEAR, DARK YELLOW URINE. SAFETY IN PLACE. WILL CONTINUE TO MONITOR.
--- NOTE | 2020-11-29 19:55 | NUR ---
MS RN NOTES PATIENT C/O 10/10 PAIN AFTER AMBULATING. GIVEN DILAUDID 1ML PRN. WILL REASSESS.
[2020-11-29 20:00] VITALS: BP 121/81
[2020-11-29] MEDS: QUETIAPINE FUMARATE 25 MG TABLET PO SCH (21:58)
--- NOTE | 2020-11-29 22:02 | NUR ---
MS RN NOTES PATIENT C/O 10/10 PAIN AFTER AMBULATING. GIVEN DILAUDID PRN. WILL REASSESS.
[2020-11-30] MEDS: HYDROMORPHONE 1 MG/1 ML DISP.SYRIN IV PRN ×8 (01:17→15:58)
--- NOTE | 2020-11-30 01:19 | NUR ---
MS RN NOTES PATIENT C/O 10/10 PAIN. GIVEN DILAUDID PRN. WILL REASSESS.
--- NOTE | 2020-11-30 03:21 | NUR ---
MS RN NOTES PATIENT C/O 10/10 PAIN. GIVEN DILAUDID 1ML. WILL REASSESS.
[2020-11-30] MEDS: HEPARIN SODIUM, PORCINE 5000 UNITS/1 ML VIAL SQ SCH ×2 (04:55→17:47)
[2020-11-30] MEDS: ANCEF 1 GM/50 ML D5W IV SCH ×3 (04:56→21:02)
[2020-11-30 06:44] LABS: BASOPHILS # (AUTO) 0.1 K/uL (0.0-0.2); BASOPHILS % (AUTO) 0.6 % (0.0-2.0); HEMATOCRIT 28 % (39-51); HEMOGLOBIN 9.4 g/dL (13.5-17.5); LYMPHOCYTES # (AUTO) 3.1 K/uL (0.8-4.8); LYMPHOCYTES % (AUTO) 27.2 % (20.0-44.0); MEAN CORPUSCULAR HGB CONC 34 g/dl (31.0-36.0); MEAN CORPUSCULAR VOLUME 84 fL (80-96); MONOCYTES # (AUTO) 0.7 K/uL (0.1-1.30); MONOCYTES % (AUTO) 6.1 % (2.0-12.0); NEUTROPHILS # (AUTO) 7.3 K/uL (1.8-8.9); NEUTROPHILS % (AUTO) 63.1 % (43.0-81.0); PLATELET COUNT (AUTO) 643 K/uL (150-450); RED BLOOD CELL COUNT(AUTO) 3.31 MIL/uL (4.5-6.0); WHITE BLOOD COUNT (AUTO) 11.5 K/uL (4.3-11.0)
--- NOTE | 2020-11-30 06:55 | NUR ---
PATIENT IN BED. A/OX4, FORGETFUL. NO S/S OF APPARENT DISTRESS. PAIN MANAGED WITH MEDICATIONS. IV NS RUNNING AT 75ML/HR. ALL NEEDS ATTENDED. ALL SCHED MEDS ADMINISTERED. SAFETY KEPT IN PLACE THE WHOLE SHIFT. NO SIGNIFICANT CHANGE SINCE LAST SHIFT. WILL ENDORSE CARE TO MORNING SHIFT RN.
[2020-11-30 06:58] LABS: CALCIUM, SERUM 8.4 mg/dL (8.5-10.1); POTASSIUM 3.7 mmol/L (3.5-5.1)
[2020-11-30 08:00] VITALS: BP 122/79
[2020-11-30] MEDS: PANTOPRAZOLE 40 MG TABLET.DR PO SCH (09:07)
[2020-11-30] MEDS: LEVETIRACETAM (250 MG) 250 MG TABLET PO SCH ×2 (09:07→21:02)
--- NOTE | 2020-11-30 10:00 | NUR ---
MS RN NOTE PATIENT CLAIMS THAT LAST BOWEL MOVEMENT WAS 6 DAYS AGO. MD NOTIFIED. PATIENT GIVEN MILK OF MAGNESIA TO HELP WITH BOWEL MOVEMENT. ENCOURAGED TO AMBULATE AND INCREASE FLUID INTAKE. WILL OCNTINUE TO MONITOR PATIENT.
--- NOTE | 2020-11-30 13:00 | NUR ---
MS RN NOTE PATIENT SEEN BY DR. WEINSTEIN WITH ORDERS MADE AND CARRIED OUT.
[2020-11-30] MEDS: GABAPENTIN 300 MG CAPSULE PO SCH ×2 (13:46→17:38)
[2020-11-30] MEDS: METHOCARBAMOL (750MG) 750 MG TABLET PO SCH ×2 (15:57→17:43)
[2020-11-30] MEDS: DOCUSATE SODIUM 100 MG CAPSULE PO SCH ×2 (15:57→17:39)
[2020-11-30 16:00] VITALS: BP 110/67
[2020-11-30] MEDS: oxyCODONE IR immediate release 5 MG PO PRN (18:15)
--- NOTE | 2020-11-30 19:45 | NUR ---
MS RN NOTES RECEIVED PATIENT IN BED WITH EYES CLOSED BUT EASY TO AROUSE. A/OX4. NO S/S OF APPARENT DISTRESS. NS RUNNING AT 75 ML/HR THIS TIME. GRULLON CATHETER DRAINING CLEAR, DARK YELLOW URINE. SAFETY IN PLACE. WILL CONTINUE TO MONITOR.
[2020-11-30 20:00] VITALS: BP 104/61
[2020-11-30] MEDS: QUETIAPINE FUMARATE 25 MG TABLET PO SCH (22:10)
[2020-12-01] MEDS: oxyCODONE IR immediate release 5 MG PO PRN ×6 (02:09→20:43)
--- NOTE | 2020-12-01 02:14 | NUR ---
MS RN NOTES PATIENT C/O 10/10 PAIN. GIVEN oxyCODONE 10 MG PRN. WILL REASSESS.
--- NOTE | 2020-12-01 03:09 | NUR ---
MS RN NOTES PATIENT C/O 10/10 PAIN. GIVEN OXYCODONE 10 MG. WILL REASSESS.
[2020-12-01] MEDS: ANCEF 1 GM/50 ML D5W IV SCH ×3 (04:59→21:32)
[2020-12-01] MEDS: HEPARIN SODIUM, PORCINE 5000 UNITS/1 ML VIAL SQ SCH ×2 (05:02→17:36)
--- NOTE | 2020-12-01 06:23 | NUR ---
MS RN CLOSING NOTE PATIENT IN BED WITH EYES CLOSED, EASY TO AROUSE. A/OX4. NO S/S OF APPARENT DISTRESS. PAIN MANAGED WITH MEDICATIONS. SAFETY KEPT IN PLACE THE WHOLE SHIFT: BED IN LOWEST, LOCKED POSITION; CALL LIGHT WITHIN REACH. PATIENT GRULLON CATHETER DRAINING CLEAR, DARK YELLOW URINE WITH OUTPUT OF 2,600 ML. NO SIGNIFICANT CHANGE SINCE LAST SHIFT. WILL ENDORSE CARE TO MORNING SHIFT RN.
--- NOTE | 2020-12-01 07:15 | NUR ---
MS RN OPENING NOTE RECEIVED PATIENT ON BED, ALERT AND ORIENTED X 4. ABLE TO MAKE NEEDS KNOWN. ENCOURAGED TO DO DEEP BREATHING EXERCISES. PATIENT ON ROOM AIR WITH EQUAL AND UNLABORED BREATHING. WITH NO SIGNS OF RESPIRATORY DISTRESS. WITH RIGHT UPPER ARM MIDLINE AND LEFT AC G18 WITH NORMAL SALINE RUNNING AT 75ML/HR INFUSING WELL. WITH MIDBACK SURGICAL SITE WITH ORDER TO JUST KEEP IT OPEN TO AIR. PROVIDED WITH CALM AND QUIET ENVIRONMENT. MAINTAINED ON MODERATE TO HIGH BACK REST. CALL LIGHT WITHIN REACH AT ALL TIMES. SAFETY PRECAUTIONS MAINTAINED WITH BED LOCKED AND AT LOWEST POSITION. WILL CONTINUE TO MONITOR.
[2020-12-01 08:15] VITALS: BP 130/80
[2020-12-01] MEDS: PANTOPRAZOLE 40 MG TABLET.DR PO SCH (08:17)
[2020-12-01] MEDS: GABAPENTIN 300 MG CAPSULE PO SCH ×3 (08:18→17:24)
[2020-12-01] MEDS: LEVETIRACETAM (250 MG) 250 MG TABLET PO SCH ×2 (08:18→21:33)
[2020-12-01] MEDS: DOCUSATE SODIUM 100 MG CAPSULE PO SCH ×2 (08:18→17:24)
[2020-12-01] MEDS: METHOCARBAMOL (500MG) 500 MG TABLET PO SCH ×3 (10:03→17:24)
[2020-12-01 10:27] LABS: BASOPHILS % (AUTO) 0.5 % (0.0-2.0); EOSINOPHILS % (AUTO) 7.1 % (0.0-6.0); HEMATOCRIT 29 % (39-51); HEMOGLOBIN 9.5 g/dL (13.5-17.5); LYMPHOCYTES # (AUTO) 2.2 K/uL (0.8-4.8); LYMPHOCYTES % (AUTO) 28.2 % (20.0-44.0); MEAN CORPUSCULAR HGB CONC 33 g/dl (31.0-36.0); MEAN CORPUSCULAR VOLUME 85 fL (80-96); MONOCYTES # (AUTO) 0.6 K/uL (0.1-1.30); MONOCYTES % (AUTO) 8.3 % (2.0-12.0); NEUTROPHILS # (AUTO) 4.4 K/uL (1.8-8.9); NEUTROPHILS % (AUTO) 55.9 % (43.0-81.0); PLATELET COUNT (AUTO) 625 K/uL (150-450); WHITE BLOOD COUNT (AUTO) 7.9 K/uL (4.3-11.0)
[2020-12-01 10:36] LABS: CALCIUM, SERUM 8.3 mg/dL (8.5-10.1); POTASSIUM 3.6 mmol/L (3.5-5.1)
--- NOTE | 2020-12-01 14:10 | NUR ---
MS RN NOTE GRULLON CATHETER REMOVED PER DR. HARMON. PROCEDURE TOLERATED WELL. WILL CONTINUE TO MONITOR PATIENT.
[2020-12-01 16:36] VITALS: BP 108/64
[2020-12-01] MEDS: IV NS 0.9% 1,000 ML IV PRN (17:36)
--- NOTE | 2020-12-01 19:55 | NUR ---
MS RN OPENING PATIENT IN BED. A/OX4, FORGETFUL. NO S/S OF APPARENT DISTRESS. C/O PAIN BUT TOLERABLE-- JUST HAD HIS PAIN MEDICATION. AMBULATING AROUND. NO FLUIDS RUNNING AT THIS TIME. SAFETY IN PLACE: BED IN LOWEST, LOCKED POSITION, CALL LIGHT WITHIN REACH. NO SIGNIFICANT CHANGE SINCE LAST SHIFT. WILL CONTINUE TO MONITOR.
[2020-12-01 20:27] VITALS: BP 108/60
--- NOTE | 2020-12-01 20:43 | NUR ---
MS GARCIA NOTES PATIENT C/O 02/09 PAIN. GIVEN OXYCODONE 10 MG. WILL REASSESS. Addendum: 12/02/20 at 0618 by SCOTT BECKER RN DISREGARD.
[2020-12-01] MEDS: QUETIAPINE FUMARATE 25 MG TABLET PO SCH (22:44)
[2020-12-02] MEDS: oxyCODONE IR immediate release 5 MG PO PRN ×3 (03:09→11:12)
--- NOTE | 2020-12-02 03:09 | NUR ---
MS RN NOTES PATIENT C/O 10/10 PAIN. GIVEN OXYCODONE 10 MG. WILL REASSESS.
[2020-12-02] MEDS: ANCEF 1 GM/50 ML D5W IV SCH ×3 (05:38→21:10)
[2020-12-02] MEDS: HEPARIN SODIUM, PORCINE 5000 UNITS/1 ML VIAL SQ SCH ×2 (05:39→16:17)
--- NOTE | 2020-12-02 06:13 | NUR ---
MS GARCIA NOTES PATIENT C/O 11/09 PAIN GIVEN DILAUDID 0.5 ML. WILL REASSESS. Addendum: 12/02/20 at 0620 by SCOTT BECKER RN OXYCODONE 0.5*
[2020-12-02 06:44] LABS: BASOPHILS # (AUTO) 0.1 K/uL (0.0-0.2); BASOPHILS % (AUTO) 0.9 % (0.0-2.0); HEMATOCRIT 27 % (39-51); HEMOGLOBIN 9.2 g/dL (13.5-17.5); LYMPHOCYTES # (AUTO) 2.9 K/uL (0.8-4.8); LYMPHOCYTES % (AUTO) 34.6 % (20.0-44.0); MEAN CORPUSCULAR HGB CONC 34 g/dl (31.0-36.0); MEAN CORPUSCULAR VOLUME 84 fL (80-96); MONOCYTES # (AUTO) 0.8 K/uL (0.1-1.30); MONOCYTES % (AUTO) 9.2 % (2.0-12.0); NEUTROPHILS # (AUTO) 4.1 K/uL (1.8-8.9); NEUTROPHILS % (AUTO) 48.3 % (43.0-81.0); PLATELET COUNT (AUTO) 608 K/uL (150-450); RED BLOOD CELL COUNT(AUTO) 3.19 MIL/uL (4.5-6.0); WHITE BLOOD COUNT (AUTO) 8.4 K/uL (4.3-11.0)
[2020-12-02 07:00] LABS: POTASSIUM 3.6 mmol/L (3.5-5.1)
--- NOTE | 2020-12-02 07:31 | NUR ---
MS RN NOTES REPORT GIVEN TO NAEEM FOR CONTINUITY OF CARE
[2020-12-02] MEDS: GABAPENTIN 300 MG CAPSULE PO SCH ×3 (08:22→16:14)
[2020-12-02] MEDS: LEVETIRACETAM (250 MG) 250 MG TABLET PO SCH ×2 (08:22→21:10)
[2020-12-02] MEDS: DOCUSATE SODIUM 100 MG CAPSULE PO SCH ×2 (08:22→16:25)
[2020-12-02] MEDS: PANTOPRAZOLE 40 MG TABLET.DR PO SCH (08:22)
[2020-12-02] MEDS: METHOCARBAMOL (500MG) 500 MG TABLET PO SCH ×3 (08:23→16:14)
[2020-12-02] MEDS: HYDROMORPHONE 1 MG/1 ML DISP.SYRIN IV PRN ×4 (08:24→19:42)
[2020-12-02 08:31] VITALS: BP 114/65
--- NOTE | 2020-12-02 09:50 | NUR ---
RN OPENING NOTE- RECEIVED PATIENT CALM INTERACTIVE IN BED, ALERT AND ORIENTED X 4. ABLE TO MAKE NEEDS KNOWN. ENCOURAGED TO DO DEEP BREATHING EXERCISES. PATIENT ON ROOM AIR WITH EQUAL AND UNLABORED BREATHING. WITH NO SIGNS OF RESPIRATORY DISTRESS. MIDBACK SURGICAL SITE WITH ORDER TO JUST KEEP IT OPEN TO AIR. PROVIDED WITH CALM AND QUIET ENVIRONMENT. MAINTAINED ON MODERATE TO HIGH BACK REST. CALL LIGHT WITHIN REACH AT ALL TIMES. SAFETY PRECAUTIONS MAINTAINED WITH BED LOCKED AND AT LOWEST POSITION. WILL CONTINUE TO MONITOR.
--- NOTE | 2020-12-02 10:15 | NUR ---
RN NOTE- IV SITE COMPROMISED TO RT AC AND LFT AC. REMOVED LFT AC. INSERTED 22G LFA BUT FAILED. PT TO HAVE MID LINE INSERTED. SKULL SPLITTER AWARE.
[2020-12-02 16:47] VITALS: BP 116/70
--- NOTE | 2020-12-02 18:38 | NUR ---
RN CLOSING NOTE- PT IS CALM ALERT ORIENTED TO PERSON PLACE TIME AND PURPOSE. NEEDS ATTENDED. BACK PAIN DECREASED W DILAUDID TODAY. PT MUCH MORE ACTIVE, AMBULATORY THROUGH UNIT. PO INTAKE FAIR. NO BM OF YET. WILL OFFER MOM. BLOOD CULTURES NEG, SECOND SET BC DRAWN. MONITOR AND ASSIST. SIDE RAILS UP, BRAKE LOCKED, CALL LAGUNAS CLOSE.
--- NOTE | 2020-12-02 19:30 | NUR ---
RN OPENING NOTE PATIENT IN BED, AWAKE. A/O X 4, ABLE TO MAKE NEEDS KNOWN. NO COMPLAINS OF N/V, REPORTS PAIN ON LOWER BACK. BREATHING EVEN AND UNLABORED, TOLERATES ROOM AIR. PATIENT'S SUTURES ON THE BACK VISIBLE S/P LAMINECTOMY, SX SITE OPEN TO AIR. JACE PICC LINE 18 G PATENT AND INTACT. SAFETY MEASURES IN PLACE: BED IN LOCKED AND IN LOWEST POSITION, CALL LIGHT WITHIN REACH, SIDE RAILS UP. ENCOURAGED PATIENT TO CALL WHEN IN NEED. WILL MONITOR PATIENT CONTINUOUSLY.
--- NOTE | 2020-12-02 19:45 | NUR ---
RN NOTE DILAUDID GIVEN FOR LOWER BACK PAIN 02/09
[2020-12-02 20:00] VITALS: BP 125/83
[2020-12-02] MEDS: QUETIAPINE FUMARATE 25 MG TABLET PO SCH (21:10)
[2020-12-03] MEDS: ANCEF 1 GM/50 ML D5W IV SCH ×2 (04:54→13:20)
[2020-12-03] MEDS: HYDROMORPHONE 1 MG/1 ML DISP.SYRIN IV PRN (04:54)
--- NOTE | 2020-12-03 04:55 | NUR ---
RN NOTE DILAUDID GIVEN FOR LOWER BACK PAIN 02/09. WILL REASSESS PAIN.
[2020-12-03] MEDS: HEPARIN SODIUM, PORCINE 5000 UNITS/1 ML VIAL SQ SCH ×2 (04:56→16:54)
--- NOTE | 2020-12-03 06:58 | NUR ---
RN CLOSING NOTE PATIENT IN BED EYES CLOSED, EASILY AWAKENED. PATIENT COMPLAINING OF PAIN ON HIS LOWER BACK. BREATHING EVEN AND UNLABORED, TOLERATES ROOM AIR. PAIN MANAGED DURING THE SHIFT. PATIENT'S JACE MIDLINE PATENT AND INTACT RUNNING NS AT 75 ML/HR. SAFETY MEASURES IMPLEMENTED. ALL NEEDS MET AND CARRIED OUT, ALL ORDERS CARRIED OUT. WILL ENDORSE TO DAY SHIFT NURSE FOR ANGEL.
[2020-12-03 07:29] LABS: BASOPHILS # (AUTO) 0.1 K/uL (0.0-0.2); BASOPHILS % (AUTO) 0.9 % (0.0-2.0); EOSINOPHILS % (AUTO) 7.1 % (0.0-6.0); HEMATOCRIT 27 % (39-51); HEMOGLOBIN 8.8 g/dL (13.5-17.5); LYMPHOCYTES # (AUTO) 2.3 K/uL (0.8-4.8); LYMPHOCYTES % (AUTO) 32.2 % (20.0-44.0); MEAN CORPUSCULAR HGB CONC 33 g/dl (31.0-36.0); MEAN CORPUSCULAR VOLUME 85 fL (80-96); MONOCYTES # (AUTO) 0.7 K/uL (0.1-1.30); MONOCYTES % (AUTO) 9.4 % (2.0-12.0); NEUTROPHILS # (AUTO) 3.6 K/uL (1.8-8.9); NEUTROPHILS % (AUTO) 50.4 % (43.0-81.0); PLATELET COUNT (AUTO) 637 K/uL (150-450); RED BLOOD CELL COUNT(AUTO) 3.15 MIL/uL (4.5-6.0); WHITE BLOOD COUNT (AUTO) 7.2 K/uL (4.3-11.0)
[2020-12-03 08:00] VITALS: BP 120/72
[2020-12-03 08:22] LABS: CREATININE 1.1 mg/dL (0.6-1.3); POTASSIUM 3.9 mmol/L (3.5-5.1)
[2020-12-03] MEDS: LEVETIRACETAM (250 MG) 250 MG TABLET PO SCH (08:35)
[2020-12-03] MEDS: METHOCARBAMOL (500MG) 500 MG TABLET PO SCH ×3 (08:35→16:55)
[2020-12-03] MEDS: oxyCODONE IR immediate release 5 MG PO PRN ×2 (08:36→14:37)
[2020-12-03] MEDS: PANTOPRAZOLE 40 MG TABLET.DR PO SCH (08:36)
[2020-12-03] MEDS: DOCUSATE SODIUM 100 MG CAPSULE PO SCH ×2 (08:36→16:54)
[2020-12-03] MEDS: GABAPENTIN 300 MG CAPSULE PO SCH ×3 (08:36→16:54)
--- NOTE | 2020-12-03 11:35 | NUR ---
m/s bolt sawyer: md visit seen and examined by aysha ferreira ([facility]) and updated pt's plan of care. pt for d'c planning today, awaiting for pain management doctor to see him. pt could go today or tomorrow, pt verbalized understanding. will continue to monitor.
--- NOTE | 2020-12-03 13:00 | NUR ---
m/s loan adviser: notes covid test collected and brought it to the lab. pt for d'c planning.
--- NOTE | 2020-12-03 13:45 | NUR ---
m/s wine steward: notes rapid covid resulted which is negative. pt made aware.
--- NOTE | 2020-12-03 14:37 | NUR ---
m/s vice president of communications: notes c/o 10/ back pain, medicated with oxy ir 10mg po as ordered. instructed to call for assistance. for d'c planning to snf after seen by pain specialist and bed availability. case management making arrangement. pt aware.
[2020-12-03] MEDS ORDERED: ALLA266C2 TP (15:15)
[2020-12-03] MEDS ORDERED: CEFA1PIG IV (15:15)
[2020-12-03] MEDS ORDERED: MAG30ORA PO (15:15)
[2020-12-03] MEDS ORDERED: MAGN400O6 PO (15:15)
[2020-12-03] MEDS ORDERED: DOCU-270 PO (15:15)
[2020-12-03] MEDS ORDERED: PANT40TA2 PO (15:15)
--- NOTE | 2020-12-03 15:30 | NUR ---
m/s denture finisher: notes received d'c to snf order from aysha ferreira ([facility]). order acknowledged.
--- NOTE | 2020-12-03 15:37 | NUR ---
m/s hand molder and caster: notes ambulating in hallway, no s/s of discomfort. will continue to monitor.
[2020-12-03 16:00] VITALS: BP 112/79
--- NOTE | 2020-12-03 16:00 | NUR ---
m/s sugarcane planter: pain management f/u seen by dr. mayer and educated pt not to take iv push pain med, pt verbalized understanding. pt is on oxy ir 5mg and 10mg po q 6 hours prn for moderate and severe pain.
--- NOTE | 2020-12-03 16:20 | NUR ---
m/s blend plant operator: notes report given to chayito from [facility] for continuity of care. milan keyla (brother) notified and made aware of d'c to snf, spoke to him over the phone.
--- NOTE | 2020-12-03 17:20 | NUR ---
m/s recreational assistant: notes discharge instructions given to pt and verbalized understanding. pt will get iv antibiotic for 6 weeks for osteomyelitis via right upper arm mid line. eta at 1800. pt aware. having dinner. will continue to monitor.
--- NOTE | 2020-12-03 18:26 | NUR ---
m/s meat and seafood clerk: notes f/u made to [facility] ambulance [phone] and informed me that they will be here for another 20-30 minutes. pt made aware.
--- NOTE | 2020-12-03 18:55 | NUR ---
m/s color sprayer: notes timeline ambulance here and report given to one of the crew.
--- NOTE | 2020-12-03 19:10 | NUR ---
m/s seo intern: discharge discharge pt to snf in stable condition with all d'c papers and valuables accompanied by 3 crew.
== END 2020-12-03 19:00 | DRG 456 ==
LOC: ER 22:39 → TELE 11-21 02:19 → MED 11-24 14:56
PROVIDERS: ADMIT Internal Medicine; ATTEND Registered Nurse
PROC: 05HB33Z Insertion of Infusion Device into Right Basilic Vein, Percutaneous Approach (ICD-10-PCS; 2020-11-23)
PROC: 0RGA0J1 Fusion of Thoracolumbar Vertebral Joint with Synthetic Substitute, Posterior Approach, Posterior Column, Open Approach (ICD-10-PCS; principal; 2020-11-27)
PROC: 0RG70J1 Fusion of 2 to 7 Thoracic Vertebral Joints with Synthetic Substitute, Posterior Approach, Posterior Column, Open Approach (ICD-10-PCS; 2020-11-27)
PROC: 0SG10J1 Fusion of 2 or more Lumbar Vertebral Joints with Synthetic Substitute, Posterior Approach, Posterior Column, Open Approach (ICD-10-PCS; 2020-11-27)
PROC: 05H933Z Insertion of Infusion Device into Right Brachial Vein, Percutaneous Approach (ICD-10-PCS; 2020-12-02)
DX: M46.26 Osteomyelitis of vertebra, lumbar region (principal); G06.1 Intraspinal abscess and granuloma; E87.1 Hypo-osmolality and hyponatremia; M48.55XA Collapsed vertebra, not elsewhere classified, thoracolumbar region, initial encounter for fracture; R78.81 Bacteremia; J45.909 Unspecified asthma, uncomplicated; K76.0 Fatty (change of) liver, not elsewhere classified; E87.6 Hypokalemia; Z20.822 Contact with and (suspected) exposure to COVID-19; Z88.0 Allergy status to penicillin; M46.45 Discitis, unspecified, thoracolumbar region; B95.61 Methicillin susceptible Staphylococcus aureus infection as the cause of diseases classified elsewhere; M48.05 Spinal stenosis, thoracolumbar region; M40.205 Unspecified kyphosis, thoracolumbar region; Z79.899 Other long term (current) drug therapy; G40.909 Epilepsy, unspecified, not intractable, without status epilepticus; Z98.890 Other specified postprocedural states; E66.01 Morbid (severe) obesity due to excess calories; F31.9 Bipolar disorder, unspecified; Z68.30 Body mass index [BMI] 30.0-30.9, adult; D63.8 Anemia in other chronic diseases classified elsewhere; Z86.61 Personal history of infections of the central nervous system; G89.29 Other chronic pain
CPT/HCPCS: 36410; 36415; 71045-TC; 72100-TC; 72146-TC; 72158-TC; 76705-TC; 80048-TC; 80053-TC; 80061-TC; 80076-TC; 80177; 80202-TC; 81001; 83605-TC; 83690-TC; 83735-TC; 84100-TC; 84443-TC; 84484-TC; 85025-TC; 85610-TC; 85730-TC; 86850-TC; 87040-TC; 87070-TC; 87075-TC; 87081-TC; 93307-TC; 97116-TC; 97530-TC; A4216; A9575; C1713; C1751; C9803; G0378; J0690; J0744; J1040; J1100; J1170; J1644; J1885; J2250; J2270; J2405; J2704; J3370; J3480; J3490; J7030; J7060; Q9968

== ENCOUNTER 2021-01-17 09:45 | Emergency (ER) | payer OTHER ==
[~2021-01-17] VITALS: Ht 190.5 cm; Wt 93.0 kg
[~2021-01-17 09:45] MED LIST changes: +ALLA266C2 TP; +CEFA1PIG IV; +DOCU-270 PO; +MAG30ORA PO; +MAGN400O6 PO; +PANT40TA2 PO
[2021-01-17] MEDS ORDERED: KETOROLAC TROMETHAMINE INJ 30 MG/ML VIAL ONE (10:26)
[2021-01-17] MEDS ORDERED: CYCLOBENZAPRINE 10 MG TABLET ONE (10:26)
[2021-01-17] MEDS ORDERED: CYCLOBENZAPRINE 10 MG TABLET PO ONE (10:30)
[2021-01-17] MEDS ORDERED: KETOROLAC TROMETHAMINE INJ 30 MG/ML VIAL IM ONE (10:30)
--- NOTE | 2021-01-17 10:31 | NUR ---
Patient doloresshadi, from snf, c/o back pain. On room air, breathing evenly and unlabored. Connected to the monitor and pulse ox. Kept comfortable, will continue to monitor accordingly.
[2021-01-17 10:53] LABS: BASOPHILS # (AUTO) 0.1 K/uL (0.0-0.2); BASOPHILS % (AUTO) 0.5 % (0.0-2.0); EOSINOPHILS % (AUTO) 0.3 % (0.0-6.0); HEMATOCRIT 35 % (39-51); HEMOGLOBIN 11.4 g/dL (13.5-17.5); LYMPHOCYTES # (AUTO) 1.2 K/uL (0.8-4.8); MEAN CORPUSCULAR HGB CONC 32 g/dl (31.0-36.0); MEAN CORPUSCULAR VOLUME 80 fL (80-96); MONOCYTES # (AUTO) 1.1 K/uL (0.1-1.30); MONOCYTES % (AUTO) 8.8 % (2.0-12.0); NEUTROPHILS # (AUTO) 10.6 K/uL (1.8-8.9); NEUTROPHILS % (AUTO) 81.4 % (43.0-81.0); PLATELET COUNT (AUTO) 376 K/uL (150-450); RED BLOOD CELL COUNT(AUTO) 4.39 MIL/uL (4.5-6.0); WHITE BLOOD COUNT (AUTO) 13.1 K/uL (4.3-11.0)
[2021-01-17] MEDS ORDERED: OXYC-133 PO (12:24)
--- NOTE | 2021-01-17 12:27 | NUR ---
CALLED [facility]. PT WILL BE PICKED UP BY BLS TRANSPORT IN 75-90 MIN OF 122.
[2021-01-17] MEDS ORDERED: oxyCODONE/APAP (5/325 MG) 1 UDTAB TABLET ONE (12:29)
[2021-01-17] MEDS ORDERED: oxyCODONE/APAP (5/325 MG) 1 UDTAB TABLET PO ONE (12:30)
[2021-01-17 13:55] VITALS: BP 129/79
--- NOTE | 2021-01-17 13:56 | NUR ---
patient picked up by private ambulance going back to [facility] in no distress.
[2021-01-18] MEDS ORDERED: ASCO500C17 PO (17:18)
[2021-01-18] MEDS ORDERED: DICL100G34 TP (17:18)
[2021-01-18] MEDS ORDERED: ASPI-1169 PO (17:18)
[2021-01-18] MEDS ORDERED: IBUP-1957 PO (17:18)
[2021-01-18] MEDS ORDERED: OXYC10TA49 PO (17:18)
[2021-01-18] MEDS ORDERED: ACET325T53 PO (17:18)
[2021-01-18] MEDS ORDERED: AMIN887L7 PO (17:18)
[2021-01-18] MEDS ORDERED: PREG75CA PO (17:18)
[2021-01-18] MEDS ORDERED: CARI350T PO (17:18)
[2021-01-23] MEDS ORDERED: CEFT1VIA15 IV (11:59)
== END 2021-01-17 13:56 ==
LOC: ER 09:56
DX: M54.5 Low back pain (principal); J45.909 Unspecified asthma, uncomplicated; F10.10 Alcohol abuse, uncomplicated; Y90.9 Presence of alcohol in blood, level not specified; Z98.890 Other specified postprocedural states; Z88.0 Allergy status to penicillin; Z79.82 Long term (current) use of aspirin; Z79.899 Other long term (current) drug therapy
CPT/HCPCS: 36415; 72131; 85025; 85652; 86140; 96372; 99285; J1885

== ENCOUNTER 2021-01-18 15:55 | Inpatient (IN) | payer OTHER ==
[~2021-01-18] VITALS: Ht 190.5 cm; Wt 91.2 kg
[~2021-01-18 15:55] MED LIST changes: +OXYC-133 PO
--- NOTE | 2021-01-18 16:00 | NUR ---
Received pt 50 yrs male came from [facility] c/o back pain for 2 days no weekness pt came with h/l from snf
--- NOTE | 2021-01-18 16:00 | NUR ---
PT CAME MEDLINE ON RT UPPER ARM PATENT IVF NS INFUSED AND PATENT morphin 4mg ivp and zofran 4 mg ivp given ruano dressing done on RT UPPER ARM
[2021-01-18] MEDS ORDERED: ONDANSETRON HCL/PF 4 MG/2 ML VIAL IVP ONE (16:30)
[2021-01-18] MEDS ORDERED: IV NS 0.9% 500 ML BAG IV ONE (16:30)
[2021-01-18] MEDS ORDERED: MORPHINE SULFATE INJ 2 MG/ML DISP.SYRIN IV ONE (16:30)
[2021-01-18] MEDS ORDERED: ONDANSETRON HCL/PF 4 MG/2 ML VIAL ONE (16:34)
[2021-01-18] MEDS ORDERED: MORPHINE SULFATE INJ 4 MG/ML DISP.SYRIN ONE (16:34)
[2021-01-18] MEDS ORDERED: DIAZEPAM 5 MG/ML 2 ML DISP.SYRIN ONE (16:50)
[2021-01-18] MEDS ORDERED: IV NS 0.9% 1,000 ML BAG IV ONE (17:00)
[2021-01-18] MEDS ORDERED: DIAZEPAM 5 MG/ML 2 ML DISP.SYRIN IV ONE (17:00)
--- NOTE | 2021-01-18 17:15 | NUR ---
MOVE SHEET SUBMITTED.
[2021-01-18] MEDS ORDERED: DICL100G34 TP (17:18)
[2021-01-18] MEDS ORDERED: ASCO500C17 PO (17:18)
[2021-01-18] MEDS ORDERED: OXYC10TA49 PO (17:18)
[2021-01-18] MEDS ORDERED: PREG75CA PO (17:18)
[2021-01-18] MEDS ORDERED: AMIN887L7 PO (17:18)
[2021-01-18] MEDS ORDERED: ACET325T53 PO (17:18)
[2021-01-18] MEDS ORDERED: CARI350T PO (17:18)
[2021-01-18] MEDS ORDERED: IBUP-1957 PO (17:18)
[2021-01-18] MEDS ORDERED: ASPI-1169 PO (17:18)
[2021-01-18 17:19] LABS: BASOPHILS % (AUTO) 0.4 % (0.0-2.0); EOSINOPHILS % (AUTO) 0.3 % (0.0-6.0); HEMATOCRIT 34 % (39-51); HEMOGLOBIN 10.8 g/dL (13.5-17.5); LYMPHOCYTES % (AUTO) 10.4 % (20.0-44.0); MEAN CORPUSCULAR HGB CONC 32 g/dl (31.0-36.0); MEAN CORPUSCULAR VOLUME 81 fL (80-96); MONOCYTES # (AUTO) 0.9 K/uL (0.1-1.30); MONOCYTES % (AUTO) 8.9 % (2.0-12.0); NEUTROPHILS # (AUTO) 7.8 K/uL (1.8-8.9); PLATELET COUNT (AUTO) 337 K/uL (150-450); RED BLOOD CELL COUNT(AUTO) 4.15 MIL/uL (4.5-6.0); WHITE BLOOD COUNT (AUTO) 9.7 K/uL (4.3-11.0)
--- NOTE | 2021-01-18 17:28 | NUR ---
covid swabs done and sent to the lab
[2021-01-18] MEDS ORDERED: VANCOMYCIN 1 GM in IV D5W 250 ML IV ONE (17:30)
[2021-01-18] MEDS ORDERED: CEFAZOLIN 2 GM in IV D5W 100 ML IV ONE (17:30)
[2021-01-18] MEDS ORDERED: VANCOMYCIN 1 GM VIAL ONE (17:39)
--- NOTE | 2021-01-18 17:45 | NUR ---
coved swab done and sent to lab resting at this time pain realeved valume 2mg ivp given
--- NOTE | 2021-01-18 17:50 | NUR ---
blood drow blood culure x 2 blood drow by lab tach no pain pt looks comfortable vs sable
--- NOTE | 2021-01-18 18:00 | NUR ---
[facility] CALLED CONVEYOR BELT REPAIRER PAGED.
[2021-01-18 18:04] LABS: ALBUMIN 3.3 g/dL (3.4-5.0); BILIRUBIN,DIRECT 0.3 mg/dL (0.0-0.2); CALCIUM, SERUM 8.3 mg/dL (8.5-10.1); CREATININE 0.9 mg/dL (0.6-1.3); POTASSIUM 3.3 mmol/L (3.5-5.1); TOTAL PROTEIN, SERUM 8.4 g/dL (6.4-8.2)
--- NOTE | 2021-01-18 18:45 | NUR ---
ancef 2 gm ivbp infused and patent no advance reaction noted sterted vancomycine 1gm ivbp infused and patent to keep pt comfortable no change pt condition
--- NOTE | 2021-01-18 18:55 | NUR ---
voiding 500ml marito yellow clear color UA and UC sent to lab
[2021-01-18] MEDS ORDERED: ACETAMINOPHEN 325 MG TABLET PO PRN (19:00)
[2021-01-18] MEDS ORDERED: MAG HYDROX/AL HYDROX/SIMETH 30 ML UDC PO PRN (19:00)
[2021-01-18] MEDS ORDERED: Z GUARD REMEDY 2 OZ OINT TP PRN (19:00)
[2021-01-18] MEDS ORDERED: ONDANSETRON HCL/PF 4 MG/2 ML VIAL IVP PRN (19:00)
[2021-01-18] MEDS ORDERED: MAGNESIUM HYDROXIDE 30 ML UDC PO PRN (19:00)
[2021-01-18 19:05] LABS: BILIRUBIN,URINE MODERATE (NEGATIVE); COLOR,URINE YELLOW (YELLOW); LEUKOCYTE ESTERASE ,URINE NEGATIVE (NEGATIVE); NITRITE, URINE NEGATIVE (NEGATIVE); PROTEIN,URINE 30 mg/dl (NEGATIVE); UGLUCOSE NEGATIVE (NEGATIVE)
--- NOTE | 2021-01-18 19:10 | NUR ---
greg rose here and see pt riky for medicale room
[2021-01-18 19:26] LABS: BACTERIA,URINE RARE /HPF (None Seen); MUCUS,URINE Few /LPF (None Seen); SQUAMOUS EPITHELIAL CELL,UR 0-2 /HPF (None Seen); WBC,URINE 0-2 /HPF (0-3)
--- NOTE | 2021-01-18 19:27 | NUR ---
hand off to SHIRIN GARCIA
--- NOTE | 2021-01-18 20:09 | NUR ---
RM 110
--- NOTE | 2021-01-18 20:18 | NUR ---
REPORT GIVEN TO JUAN GARCIA FOR ANGEL
--- NOTE | 2021-01-18 20:34 | NUR ---
SEEN AND EXAMINED BY DR ALDANA/CÉSAR AT BEDSIDE
--- NOTE | 2021-01-18 20:45 | NUR ---
PT TRANSFERRED TO ROOM 110 IN A GURNEY ACCOMPANIED BY EMT, IN STABLE CONDITION.
--- NOTE | 2021-01-18 20:45 | NUR ---
RN NOTE RECEIVED REPORT FROM SHIRIN GARCIA IN EMERGENCY DEPARTMENT. PT. ARRIVED TO UNIT VIA GURNEY ACCOMPANIED BY EMT. PT. IS A/O X4, COMPLAINS OF PAIN 10/10 IN POSTERIOR BACK AND STATES IT IS A CHRONIC UNRELIEVED PAIN. PT. IS ON ROOM AIR WITH SATURATIONS ABOVE 98%. ALL PT BELONGINGS ACCOUNTED FOR. (R) UA PICC LINE NOTED, PATENT AND FLUSHED WITH CLEAN AND DRY DRESSING. IV PUMP AT BEDSIDE TO BEGIN ADMINISTRATION OF MEDICATIONS. PT ON REGULAR DIET WITH WATER PITCHER AT BEDSIDE. SAFETY MEASURES IMPLEMENTED: CALL LIGHT WITHIN REACH, SIDE RAILS UP X2, BED ALARM ON, BED LOCKED IN LOWEST POSITION. NO OTHER DISTRESS NOTED AT THIS TIME.
[2021-01-18 21:02] VITALS: BP 126/79
[2021-01-18] MEDS: MORPHINE SULFATE INJ 2 MG/ML DISP.SYRIN IV PRN (21:20)
--- NOTE | 2021-01-18 21:20 | NUR ---
RN NOTE PRN DOSE OF MORPHINE 2MG GIVEN IVP FOR PAIN LEVEL 10/10 ON POSTERIOR BACK. VSS. A/OX4. NO DISTRESS NOTED.
[2021-01-18] MEDS ORDERED: CEFTRIAXONE 1 G VIAL ONE ×2 (21:21)
[2021-01-18] MEDS: CEFTRIAXONE 2 G in IV D5W 100 ML IV SCH (21:32)
[2021-01-18] MEDS: ZOLPIDEM TARTRATE 5 MG TABLET PO PRN (22:25)
--- NOTE | 2021-01-18 22:30 | NUR ---
RN NOTE PRN DOSE OF AMBIEN GIVEN PER PT. REQUEST HE STATES HE SUFFERS FROM INSOMNIA AND EXTREME RESTLESSNESS. PRN DOSE OF ACETAMINOPHEN GIVEN FOR TEMPERATURE OF 100.2. VSS. NO DISTRESS NOTED.
[2021-01-19] MEDS ORDERED: VANCOMYCIN 500 MG VIAL ONE (00:45)
[2021-01-19] MEDS ORDERED: VANCOMYCIN 1 GM VIAL ONE (00:47)
[2021-01-19] MEDS ORDERED: VANCOMYCIN 1.5 GM in IV D5W 500ml IV ONE (02:00)
[2021-01-19] MEDS: MORPHINE SULFATE INJ 2 MG/ML DISP.SYRIN IV PRN ×5 (03:33→20:34)
[2021-01-19 04:00] VITALS: BP 125/65
--- NOTE | 2021-01-19 04:00 | NUR ---
RN NOTE PRN DOSE OF MORPHINE 2MG GIVEN IVP FOR PAIN LEVEL 9/10 ON POSTERIOR BACK. VSS. A/OX4. NO DISTRESS NOTED.
[2021-01-19 06:31] LABS: BASOPHILS % (AUTO) 0.3 % (0.0-2.0); EOSINOPHILS % (AUTO) 1.3 % (0.0-6.0); HEMATOCRIT 31 % (39-51); HEMOGLOBIN 10.2 g/dL (13.5-17.5); LYMPHOCYTES # (AUTO) 1.6 K/uL (0.8-4.8); LYMPHOCYTES % (AUTO) 17.7 % (20.0-44.0); MEAN CORPUSCULAR HGB CONC 33 g/dl (31.0-36.0); MEAN CORPUSCULAR VOLUME 80 fL (80-96); MONOCYTES # (AUTO) 0.8 K/uL (0.1-1.30); NEUTROPHILS # (AUTO) 6.5 K/uL (1.8-8.9); NEUTROPHILS % (AUTO) 71.7 % (43.0-81.0); PLATELET COUNT (AUTO) 328 K/uL (150-450); RED BLOOD CELL COUNT(AUTO) 3.91 MIL/uL (4.5-6.0); WHITE BLOOD COUNT (AUTO) 9.1 K/uL (4.3-11.0)
--- NOTE | 2021-01-19 06:32 | NUR ---
RN CLOSING NOTE PT. IS RESTING IN BED A/O X4, COMPLAINS OF PAIN 8/10 IN POSTERIOR BACK AND STATES IT IS A CHRONIC UNRELIEVED PAIN. PT. IS ON ROOM AIR WITH SATURATIONS ABOVE 98%. (R) UA PICC LINE NOTED, PATENT AND FLUSHED WITH CLEAN AND DRY DRESSING. PT ON REGULAR DIET WITH WATER PITCHER AT BEDSIDE. PRN DOSE OF ACETAMINOPHEN GIVEN FOR FEVER, MORPHINE FOR SEVERE PAIN AND AMBIEN FOR INSOMNIA. ALL NEEDS AND ORDERS MET THROUGHOUT SHIFT. PT. KEPT CLEAN AND DRY. PT. IS CURRENTLY ON BEDREST WITH URINAL AT BEDSIDE. SAFETY MEASURES IMPLEMENTED: CALL LIGHT WITHIN REACH, SIDE RAILS UP X2, BED ALARM ON, BED LOCKED IN LOWEST POSITION. NO OTHER DISTRESS NOTED AT THIS TIME. WILL ENDORSE TO MORNING SHIFT RN.
[2021-01-19 07:37] LABS: CREATININE 0.8 mg/dL (0.6-1.3); MAGNESIUM 1.9 mg/dL (1.8-2.4); PHOSPHORUS 2.7 mg/dL (2.5-4.9); POTASSIUM 3.7 mmol/L (3.5-5.1)
[2021-01-19 07:46] LABS: CALCIUM, SERUM 7.9 mg/dL (8.5-10.1)
--- NOTE | 2021-01-19 07:51 | NUR ---
MS RN NOTE PATIENT IN BED , ALL NEEDS ATTENDED ON RA NO SOB NOTED ALERT ORIENTEDX4 , C\O PAIN IN BACK 8\10 MORPHINE 2 MG IV GIVEN , BED IN LOWEST AND LOCKED POSITION, PICC LINE RT UPPER ARM IN PLACE AND FLUSHED WELL , CALL LIGHT WITHIN REACH , WILL MONITOR
--- NOTE | 2021-01-19 07:55 | NUR ---
ms rn note morphine given will monitor
[2021-01-19 08:28] LABS: C-REACTIVE PROTEIN 29.6 mg/dL (0.0-0.9)
[2021-01-19] MEDS: HYDROCODONE/APAP 5/325MG TABLET PO PRN ×4 (08:40→22:40)
--- NOTE | 2021-01-19 08:41 | NUR ---
ms rn note STILL IN PAIN NORCO PO GVEN BP BP 125/78 SATURATION 95% WILL MONITOR
[2021-01-19 09:53] VITALS: BP 128/69
[2021-01-19] MEDS: VANCOMYCIN 1 GM in IV D5W 250 ML IV SCH ×2 (10:16→17:16)
--- NOTE | 2021-01-19 10:32 | NUR ---
MS RN NOTE REFUSED PT WILL MONITOR
--- NOTE | 2021-01-19 11:27 | NUR ---
MS RN NOTE MID LINE IS LEAKING NEW HL KULDEEP 24 INSERTED WITH GOOD BLOOD RETURN KULDEEP 24 ,WILL AWAIT FOE MID LINE NURSE TO INSERT MID LINE ,WILL F\U
[2021-01-19 12:00] VITALS: BP 108/76
--- NOTE | 2021-01-19 12:24 | NUR ---
MS RN NOTE MID LINE INSERTED ON LT UPPER ARM KULDEEP 18 ,KEEP CLEAN DRY , MORPHINE 2 MG IVP GIVEN FOR PAIN ,BP108/65
--- NOTE | 2021-01-19 15:25 | NUR ---
MS RN NOTE DR FIELDS T BEDSIDE NOTIFIED THAT PATIENT C\O PAIN AND WANTS TO HAVE MRI OF SPINE STATED THAT WILL CHECK IT OUT, DR FIELDS AT BEDSIDE SPEAKING WITH PATIENT, WILL F\U
[2021-01-19 16:00] VITALS: BP 119/75
--- NOTE | 2021-01-19 18:33 | NUR ---
MS RN NOTE C\O PAAN ON BACK,AROLDO Carty GIVEN BP 113/68 SATURATION 96% ,ALL NEEDS ATTENDED, ATE DINNER , WILL CONT TO MONITOR
--- NOTE | 2021-01-19 18:45 | NUR ---
MS RN NOTE NOTED PATIENT VOMITING ZOFRAN 4 MG IVP GIVEN ORDERED
--- NOTE | 2021-01-19 19:30 | NUR ---
RN NOTE RECEIVED PATIENT IN BED. A/OX4. TOLERATING ROOM AIR. RESPIRATIONS ARE EVEN AND UNLABORED. NO S/S SOB NOTED. C/O PAIN IN BACK 02/09, INFORMED WILL ASSESS VITALS SIGNS OBTAINED BY CORPORATE COMMUNICATIONS ASSOCIATE AND MEDICATION LIST. IN NO APPARENT DISTRESS. IV ACCESS IN SHERRY MIDLINE PATENT AND SALINE LOCKED. BED IS LOW AND LOCKED, HOB ELEVATED IN SEMI FOWLERS, SIDE RAILS UP X2, CALL LIGHT WITHIN REACH. WILL CONTINUE TO MONITOR THROUGHOUT SHIFT.
[2021-01-19 20:00] VITALS: BP 119/70
[2021-01-19] MEDS: CEFTRIAXONE 2 G in IV D5W 100 ML IV SCH (20:35)
--- NOTE | 2021-01-19 23:52 | NUR ---
RN NOTE DID NOT TAKW PHOTOS PER PROTOCOL QSUNDAY. PATIENT ADMITTED WITHIN 24HOURS. CONDUCTED SKIN ASSESSMENT, COMPARED TO PHOTOS, NO CHANGES.
[2021-01-19] MEDS: ZOLPIDEM TARTRATE 5 MG TABLET PO PRN (23:58)
[2021-01-20] MEDS: VANCOMYCIN 1 GM in IV D5W 250 ML IV SCH ×2 (02:23→10:32)
[2021-01-20] MEDS: MORPHINE SULFATE INJ 2 MG/ML DISP.SYRIN IV PRN ×5 (02:32→20:40)
[2021-01-20] MEDS: HYDROCODONE/APAP 5/325MG TABLET PO PRN ×5 (03:56→22:16)
[2021-01-20 04:00] VITALS: BP 129/78
--- NOTE | 2021-01-20 06:53 | NUR ---
RN NOTE R/O COVID ISOLATION. RESTING IN BED. A/OX4. TOLERATING ROOM AIR. RESPIRATIONS ARE EVEN AND UNLABORED. NO RESP DISTRESS. PAIN MANAGED BY NORCO AND MORPHINE. NO DISTRESS. IV IN SHERRY MIDLINE. BED REMAINS LOW AND LOCKED, HOB ELEVATED IN SEMI FOWLERS, SIDE RAILS UP X2, CALL LIGHT WITHIN REACH. WILL ENDORSE TO ONCOMING SHIFT.
--- NOTE | 2021-01-20 07:18 | NUR ---
RN OPENING NOTE Pt is asleep arousable to stimuli, no respiratory distress, no SOB. On contact/droplet precautions for COVID until PCR results available. Safety precautions implemented, bed locked in lowest position, call light within reach.
[2021-01-20 09:40] LABS: BASOPHILS # (AUTO) 0.1 K/uL (0.0-0.2); BASOPHILS % (AUTO) 1.1 % (0.0-2.0); EOSINOPHILS % (AUTO) 1.6 % (0.0-6.0); HEMATOCRIT 33 % (39-51); HEMOGLOBIN 10.7 g/dL (13.5-17.5); LYMPHOCYTES # (AUTO) 1.4 K/uL (0.8-4.8); LYMPHOCYTES % (AUTO) 18.5 % (20.0-44.0); MEAN CORPUSCULAR HGB CONC 32 g/dl (31.0-36.0); MEAN CORPUSCULAR VOLUME 81 fL (80-96); MONOCYTES # (AUTO) 0.5 K/uL (0.1-1.30); MONOCYTES % (AUTO) 7.2 % (2.0-12.0); NEUTROPHILS # (AUTO) 5.5 K/uL (1.8-8.9); NEUTROPHILS % (AUTO) 71.6 % (43.0-81.0); PLATELET COUNT (AUTO) 347 K/uL (150-450); RED BLOOD CELL COUNT(AUTO) 4.09 MIL/uL (4.5-6.0); WHITE BLOOD COUNT (AUTO) 7.6 K/uL (4.3-11.0)
[2021-01-20 10:14] LABS: CALCIUM, SERUM 8.1 mg/dL (8.5-10.1); CREATININE 0.6 mg/dL (0.6-1.3); MAGNESIUM 1.9 mg/dL (1.8-2.4); POTASSIUM 3.6 mmol/L (3.5-5.1)
[2021-01-20 12:00] VITALS: BP 127/76
--- NOTE | 2021-01-20 12:50 | NUR ---
RN NOTE Clarified order with CHEMISTRY DEPARTMENT CHAIR Ford, Patient had PICC line removed 01/19, and Midline was placed in the opposite arm. Per CHEMISTRY DEPARTMENT CHAIR D/C order to send PICC line tip for C/S. Noted and communicated accordingly.
[2021-01-20] MEDS: VANCOMYCIN 1.25 GM in IV D5W 250 ML IV SCH (17:48)
--- NOTE | 2021-01-20 19:06 | NUR ---
RN CLOSING NOTE Pt is A/O x 4, No respiratory distress, no SOB. Standard precautions, complains of chronic pain on back area, with mild relief after administration of Morphine/Wasta. Had MRI Lspine procedure done without contrast per staff unable to tolerate pain, and could not do the one with contrast. Safety precautions implemented, bed locked in lowest position, call light within reach.
[2021-01-20 20:00] VITALS: BP 138/81
--- NOTE | 2021-01-20 20:00 | NUR ---
RN NOTE RECEIVED PATIENT IN BED. A/OX4. TOLERATING ROOM AIR. RESPIRATIONS ARE EVEN AND UNLABORED. NO S/S SOB NOTED. C/O PAIN IN BACK 02/09, INFORMED WILL ASSESS VITALS SIGNS OBTAINED BY CIRCULAR CLERK AND MEDICATION LIST. IN NO APPARENT DISTRESS. IV ACCESS IN SHERRY MIDLINE PATENT AND SALINE LOCKED. BED IS LOW AND LOCKED, HOB ELEVATED IN SEMI FOWLERS, SIDE RAILS UP X2, CALL LIGHT WITHIN REACH. WILL CONTINUE TO MONITOR THROUGHOUT SHIFT.
[2021-01-20] MEDS: CEFTRIAXONE 2 G in IV D5W 100 ML IV SCH (20:42)
[2021-01-20] MEDS ORDERED: DICLOFENAC TOPICAL 100 GM GEL..GM. TP PRN (23:00)
[2021-01-20] MEDS ORDERED: CYCLOBENZAPRINE 10 MG TABLET PO PRN (23:00)
[2021-01-21] MEDS: MORPHINE SULFATE INJ 2 MG/ML DISP.SYRIN IV PRN ×5 (00:45→19:43)
[2021-01-21] MEDS: VANCOMYCIN 1.25 GM in IV D5W 250 ML IV SCH ×2 (01:00→10:27)
--- NOTE | 2021-01-21 02:40 | NUR ---
RN NOTE - TRANSFER OF CARE TRANSFER OF CARE TO URBANO GARCIA. PATIENT IN STABLE CONDITION, C/O PAIN AT THIS TIME.
[2021-01-21] MEDS: HYDROCODONE/APAP 5/325MG TABLET PO PRN ×5 (02:54→22:43)
[2021-01-21 04:00] VITALS: BP 134/75
--- NOTE | 2021-01-21 07:09 | NUR ---
RN NOTE NO CHANGES IN PT CONDITION DURING SHIFT. PT IS A/OX4. TOLERATING ROOM AIR WITH NO S/S OF RESP DISTRESS/SOB. RESPIRATIONS ARE EVEN AND UNLABORED. IV ACCESS IN SHERRY MIDLINE FLUSHED, PATENT, AND INTACT WITH NO SIGNS OF INFILTRATION. ALL DUE MEDS GIVEN ORDERED. PT KEPT CLEAN AND COMFORTABLE. ALL SAFETY MEASURES IMPLEMENTED. CALL LIGHT WITHIN REACH. BED ALARM ON. BED LOCKED AND IN LOWEST POSITION. WILL ENDORSE TO MORNING SHIFT RN FOR ANGEL.
--- NOTE | 2021-01-21 07:24 | NUR ---
RN OPENING NOTE Pt is Asleep arousable to stimuli, no respiratory distress, no SOB. Safety precautions implemented, bed locked in lowest position, call light within reach.
[2021-01-21 07:25] LABS: BASOPHILS % (AUTO) 0.3 % (0.0-2.0); HEMATOCRIT 33 % (39-51); HEMOGLOBIN 10.7 g/dL (13.5-17.5); LYMPHOCYTES # (AUTO) 1.3 K/uL (0.8-4.8); LYMPHOCYTES % (AUTO) 20.6 % (20.0-44.0); MEAN CORPUSCULAR HGB CONC 32 g/dl (31.0-36.0); MEAN CORPUSCULAR VOLUME 80 fL (80-96); MONOCYTES # (AUTO) 0.5 K/uL (0.1-1.30); MONOCYTES % (AUTO) 7.3 % (2.0-12.0); NEUTROPHILS # (AUTO) 4.5 K/uL (1.8-8.9); NEUTROPHILS % (AUTO) 69.8 % (43.0-81.0); PLATELET COUNT (AUTO) 415 K/uL (150-450); RED BLOOD CELL COUNT(AUTO) 4.13 MIL/uL (4.5-6.0); WHITE BLOOD COUNT (AUTO) 6.4 K/uL (4.3-11.0)
[2021-01-21] MEDS: LEVETIRACETAM (250 MG) 250 MG TABLET PO SCH ×2 (08:06→22:42)
[2021-01-21] MEDS: PREGABALIN 25 MG CAPSULE PO SCH ×2 (08:07→17:35)
[2021-01-21] MEDS: DOCUSATE SODIUM 100 MG CAPSULE PO SCH ×2 (08:07→17:35)
[2021-01-21] MEDS: CARISOPRODOL 350 MG TABLET PO SCH ×2 (08:08→17:33)
[2021-01-21 08:38] LABS: CALCIUM, SERUM 8.4 mg/dL (8.5-10.1); CREATININE 0.6 mg/dL (0.6-1.3); MAGNESIUM 2.2 mg/dL (1.8-2.4); PHOSPHORUS 3.3 mg/dL (2.5-4.9); POTASSIUM 3.3 mmol/L (3.5-5.1)
[2021-01-21] MEDS ORDERED: POTASSIUM CHLORIDE 20 MEQ TAB.PRT.SR PO ONE (10:00)
[2021-01-21 12:00] VITALS: BP 126/61
--- NOTE | 2021-01-21 18:53 | NUR ---
RN CLOSING NOTES Pt is A/O X 3, no respiratory distress, no SOB. SHERRY Midline in place with no s/sx of infiltration. Complains of pain on lower back with mild relief after administration of morphine and norco. Vanco trough 25, vanco dose stopped. Safety precautions implemented, bed locked in lowest position, call light within reach. Refused PT evaluation stating he has pain, neurosurgeon evaluation pending.
--- NOTE | 2021-01-21 19:00 | NUR ---
MS RN OPENING NOTE RECEIVED PT AWAKE IN BED, ALERT AND ORIENTED X4. IV IS INTACT, PATENT AND FLUSHINHG WELL. SAFETY MEASURE MAINTAINED, BED IN LOWEST LOCKED POSITION, HOB ELEVATED, SIDE RAILS UP X2, CALL LIGHT AND TABLE WITHIN REACH.. WILL CONTINUE TO MONITOR
--- NOTE | 2021-01-21 19:43 | NUR ---
PT C/O ACHING PAIN, PER PT REQUEST MORPHINE 2MG/IML IV Q4H PRN ADMINISTERED ORDERED. WILL CONTINUE TO MONITOR
[2021-01-21 20:00] VITALS: BP 113/50
[2021-01-21] MEDS: CEFTRIAXONE 2 G in IV D5W 100 ML IV SCH (22:43)
[2021-01-21] MEDS: QUETIAPINE FUMARATE 25 MG TABLET PO SCH (22:43)
--- NOTE | 2021-01-21 22:43 | NUR ---
PT C/O ACHING PAIN, PER PT REQUEST NORCO 5-325MG PO Q4H PRN ADMINISTERED ORDERED. WILL CONTINUE TO MONITOR
[2021-01-22] MEDS: MORPHINE SULFATE INJ 2 MG/ML DISP.SYRIN IV PRN ×5 (03:00→21:02)
--- NOTE | 2021-01-22 03:00 | NUR ---
PT C/O ACHING PAIN, PER PT REQUEST MORPHINE 2MG/IML IV Q4H PRN ADMINISTERED ORDERED. WILL CONTINUE TO MONITOR
[2021-01-22 04:00] VITALS: BP 103/53
--- NOTE | 2021-01-22 06:30 | NUR ---
MS RN CLOSING NOTE PT AWAKE IN BED, ALL CARE, NEEDS AND MEDICATIONS ADMINISTERED. WILL ENDORSE TO ONCOMING NURSE FOR ANGEL.
[2021-01-22 07:33] LABS: CALCIUM, SERUM 8.6 mg/dL (8.5-10.1); CREATININE 0.7 mg/dL (0.6-1.3); POTASSIUM 3.5 mmol/L (3.5-5.1)
--- NOTE | 2021-01-22 07:50 | NUR ---
RN OPENING NOTE RECEIVED PATIENT IS ON BED AWAKE, ALERT AND ORIENTED X4 . PATIENT IS ON ROOM AIR. PATIENT IN NO APPARENT RESPIRATORY DISTRESS OR SOB NOTED. PATIENT COMPLAINED OF PAIN RATED 10/10. WILL CONTINUE TO MONITOR.
[2021-01-22] MEDS: DOCUSATE SODIUM 100 MG CAPSULE PO SCH ×2 (09:21→16:58)
[2021-01-22] MEDS: LEVETIRACETAM (250 MG) 250 MG TABLET PO SCH ×2 (09:22→21:02)
[2021-01-22] MEDS: HYDROCODONE/APAP 5/325MG TABLET PO PRN ×4 (09:22→22:44)
[2021-01-22] MEDS: PREGABALIN 25 MG CAPSULE PO SCH ×2 (09:22→16:58)
[2021-01-22] MEDS: CARISOPRODOL 350 MG TABLET PO SCH ×2 (09:22→16:58)
--- NOTE | 2021-01-22 18:55 | NUR ---
MS/RN CLOSING NOTES PATIENT IS ON BED ALERT AND ORIENTED X4. PATIENT IS ON ROOM AIR. PATIENT IN NO APPARENT RESPIRATORY DISTRESS NOTED. NO COMPLAINED OF PAIN NOTED AT THIS TIME. SEEN ND EXAMINED BY MD WITH ORDERS MADE AND CARRIED OUT. ALL DUE MEDICATIONS WAS GIVEN. IV ACCESS AT LEFT UPPER ARM MIDLINE PATENT AND INTACT. SAFETY PRECAUTIONS WAS IN PLACE. BED IN LOW POSITION AND LOCKED. SIDERAILS UP X2. CALL LIGHT WITHIN REACH. WILL ENDORSED TO MINE CAR MECHANIC FOR ANGEL.
[2021-01-22 20:00] VITALS: BP 128/73
[2021-01-22] MEDS: CEFTRIAXONE 2 G in IV D5W 100 ML IV SCH (21:02)
[2021-01-22] MEDS: QUETIAPINE FUMARATE 25 MG TABLET PO SCH (21:03)
[2021-01-23 04:00] VITALS: BP 104/62
[2021-01-23] MEDS: MORPHINE SULFATE INJ 2 MG/ML DISP.SYRIN IV PRN ×4 (04:07→16:41)
--- NOTE | 2021-01-23 07:31 | NUR ---
RN OPENING NOTES; RECEIVED PT IN BED RESTING, IN SIDE LYING POS. PT A/OX4, PT IS INDEPENDENT, AMBULATORY. SKIN IS INTACT. SHERRY MID PATENT WITH NO SIGNS OF INFILTRATION. ALL SAFETY MEASURES RENDERED, BED LOCKED, WITH CALL LIGHT WITHIN REACH. WILL CONTINUE TO MONITOR.
[2021-01-23] MEDS: DOCUSATE SODIUM 100 MG CAPSULE PO SCH ×2 (08:09→16:04)
[2021-01-23] MEDS: CARISOPRODOL 350 MG TABLET PO SCH ×2 (08:09→16:04)
[2021-01-23] MEDS: LEVETIRACETAM (250 MG) 250 MG TABLET PO SCH (08:09)
[2021-01-23] MEDS: PREGABALIN 25 MG CAPSULE PO SCH ×2 (08:09→16:04)
[2021-01-23] MEDS: HYDROCODONE/APAP 5/325MG TABLET PO PRN ×2 (10:17→14:32)
[2021-01-23] MEDS ORDERED: CEFT1VIA15 IV (11:59)
[2021-01-23 12:00] VITALS: BP 127/68
--- NOTE | 2021-01-23 17:56 | NUR ---
PHYSICAL THERAPY DIRECTOR NOTES; PT DC'D TO [facility] IN STABLE CONDITION. REPORT GIVEN TO JOSE PLAZA. DC INSTRUCTIONS GIVEN AND EXPLAINED TO PT. VERBALIZED UNDERSTANDING. ALL PAPERWORK SINGED AND COMPLETED. ALL BELONGINGS SENT. NOTED SHERRY MIDLINE PATENT WITH NO SIGNS OF INFILTRATION. PT LEFT UNIT IN STABLE CONDITION. PT ENDORSED TO [facility] SUPERVISOR FRUIT GRADING, AND LEFT VIA AMBULANCE IN STABLE CONDITION.
== END 2021-01-23 17:15 | DRG 872 ==
LOC: ER 15:57 → MEDSG1 20:20
PROVIDERS: ADMIT Student in an Organized Health Care Education/Training Program; ATTEND Nurse Practitioner Acute Care
PROC: 05HC33Z Insertion of Infusion Device into Left Basilic Vein, Percutaneous Approach (ICD-10-PCS; principal; 2021-01-19)
DX: A41.9 Sepsis, unspecified organism (principal); E44.1 Mild protein-calorie malnutrition; E87.1 Hypo-osmolality and hyponatremia; M46.25 Osteomyelitis of vertebra, thoracolumbar region; M46.45 Discitis, unspecified, thoracolumbar region; D64.9 Anemia, unspecified; J45.909 Unspecified asthma, uncomplicated; E87.6 Hypokalemia; Z79.82 Long term (current) use of aspirin; Z98.1 Arthrodesis status; G40.909 Epilepsy, unspecified, not intractable, without status epilepticus; D63.8 Anemia in other chronic diseases classified elsewhere; Z20.822 Contact with and (suspected) exposure to COVID-19; Z88.0 Allergy status to penicillin; V89.2XXS Person injured in unspecified motor-vehicle accident, traffic, sequela; Z98.890 Other specified postprocedural states; Z79.899 Other long term (current) drug therapy; F31.9 Bipolar disorder, unspecified; Z87.311 Personal history of (healed) other pathological fracture
CPT/HCPCS: 36410; 36415; 71045-TC; 72131-TC; 72148-TC; 80048-TC; 80076-TC; 80202-TC; 81001; 83605-TC; 83690-TC; 83735-TC; 84100-TC; 85025-TC; 85652-TC; 85730-TC; 86140-TC; 87040-TC; 87081-TC; C9803; G0378; J0690; J0696; J2270; J2405; J3360; J3370; J7050; J7060; U0003

== ENCOUNTER 2021-04-15 09:29 | Emergency (ER) | payer OTHER, MEDICAID ==
[~2021-04-15] VITALS: Ht 190.5 cm; Wt 90.7 kg
[~2021-04-15 09:29] MED LIST changes: +ACET325T53 PO; -ALLA266C2 TP; +AMIN887L7 PO; +ASCO500C17 PO; +ASPI-1169 PO; +CARI350T PO; -CEFA1PIG IV; +CEFT1VIA15 IV; +DICL100G34 TP; +IBUP-1957 PO; -MAG30ORA PO; -OXYC-128 PO; -OXYC-133 PO; +OXYC10TA49 PO; +PREG75CA PO
--- NOTE | 2021-04-15 09:45 | NUR ---
BIB SELF C/O BACK PAIN RATED 10/10 X5 MONTHS. HX OF OSTEOMYELITIS, PRIOR BACK SURGERY FOR OSTEOMYELITIS. AAOX4, BREATHING EVEN AND UNLABORED. RESPIRATIONS EVEN AND UNLABORED. DIAPHORETIC. ASSISTED TO ER BED 3. AWAITING MD FOR EVAL.
[2021-04-15] MEDS ORDERED: KETOROLAC TROMETHAMINE 15 MG/ML VIAL ONE ×2 (10:10→12:46)
[2021-04-15 10:21] LABS: BASOPHILS # (AUTO) 0.1 K/uL (0.0-0.2); BASOPHILS % (AUTO) 1.2 % (0.0-2.0); EOSINOPHILS % (AUTO) 0.1 % (0.0-6.0); HEMATOCRIT 39 % (39-51); HEMOGLOBIN 13.1 g/dL (13.5-17.5); LYMPHOCYTES # (AUTO) 0.9 K/uL (0.8-4.8); LYMPHOCYTES % (AUTO) 16.4 % (20.0-44.0); MEAN CORPUSCULAR HGB CONC 34 g/dl (31.0-36.0); MEAN CORPUSCULAR VOLUME 79 fL (80-96); MONOCYTES # (AUTO) 0.2 K/uL (0.1-1.30); MONOCYTES % (AUTO) 4.1 % (2.0-12.0); NEUTROPHILS # (AUTO) 4.3 K/uL (1.8-8.9); NEUTROPHILS % (AUTO) 78.2 % (43.0-81.0); PLATELET COUNT (AUTO) 286 K/uL (150-450); RED BLOOD CELL COUNT(AUTO) 4.95 MIL/uL (4.5-6.0); WHITE BLOOD COUNT (AUTO) 5.5 K/uL (4.3-11.0)
--- NOTE | 2021-04-15 10:27 | NUR ---
PT TAKEN TO CT AND RETURNED
[2021-04-15] MEDS ORDERED: KETOROLAC TROMETHAMINE INJ 30 MG/ML VIAL IV ONE ×2 (10:30→12:30)
[2021-04-15] MEDS ORDERED: oxyCODONE IR immediate release 5 MG PO PRN (10:30)
[2021-04-15] MEDS ORDERED: DIAZEPAM 5 MG TABLET ONE (10:59)
[2021-04-15] MEDS ORDERED: DIAZEPAM 5 MG TABLET PO ONE (11:00)
--- NOTE | 2021-04-15 11:17 | NUR ---
PT AMBULATED TO RESTROOM AND RETURNED
[2021-04-15] MEDS ORDERED: CYCLOBENZAPRINE 10 MG TABLET PO ONE (12:30)
[2021-04-15] MEDS ORDERED: oxyCODONE/APAP (5/325 MG) 1 UDTAB TABLET PO ONE (12:30)
--- NOTE | 2021-04-15 12:44 | NUR ---
CALLED DR. CHAUDHRY (NEUROSURGEON) AND WAS PAGED WITH OUR CALL BACK NUMBER
[2021-04-15] MEDS ORDERED: oxyCODONE/APAP (5/325 MG) 1 UDTAB TABLET ONE (12:46)
[2021-04-15] MEDS ORDERED: CYCLOBENZAPRINE 10 MG TABLET ONE (12:46)
[2021-04-15] MEDS ORDERED: HYDR-3976 PO (13:05)
[2021-04-15] MEDS ORDERED: NAPR-1009 PO (13:05)
[2021-04-15] MEDS ORDERED: FAMO20TA8 PO (13:06)
--- NOTE | 2021-04-15 13:15 | NUR ---
Patient discharged to home in stable condition. Written and verbal after care instructions given. Patient verbalizes understanding of instruction.
--- NOTE | 2021-04-15 13:15 | NUR ---
IV removed. Catheter intact and site benign. Pressure and 4x4 applied to site. No bleeding noted.
[2021-04-15 13:16] VITALS: BP 133/97
== END 2021-04-15 13:15 | disposition home or self-care (01) ==
LOC: ER 09:33
DX: G89.29 Other chronic pain (principal); M54.9 Dorsalgia, unspecified; Z88.0 Allergy status to penicillin; Z79.899 Other long term (current) drug therapy
CPT/HCPCS: 36415; 72131; 85025; 85652; 86140; 96374; 96376; 99284; J1885 ×2

== ENCOUNTER 2021-05-02 12:06 | Emergency (ER) | payer OTHER ==
[~2021-05-02] VITALS: Ht 180.3 cm; Wt 89.8 kg
[~2021-05-02 12:06] MED LIST changes: +FAMO20TA8 PO; +HYDR-3976 PO; +NAPR-1009 PO
--- NOTE | 2021-05-02 12:06 | NUR ---
PT BIBRA FROM HOME C/O SEIZURE EPISODE TWICE TODAY. PT IS AAOX4, NOT IN RESPIRATORY DISTRESS, HOOKED TO PRISON LIBRARIAN, KEPT RESTED AND COMFORTABLE. WILL CONTINUE TO MONITOR.
--- NOTE | 2021-05-02 12:13 | NUR ---
PT SEEN AND EXAMINED BY .
--- NOTE | 2021-05-02 12:15 | NUR ---
IV LINE ESTABLISHED BLOOD DRAWN AND SENT TO LAB.
[2021-05-02] MEDS ORDERED: LEVETIRACETAM (500MG) 500 MG in IV NS 0.9% 100 ML IV ONE (12:30)
--- NOTE | 2021-05-02 12:40 | NUR ---
PT BACK FROM CT
[2021-05-02 12:53] LABS: BASOPHILS # (AUTO) 0.1 K/uL (0.0-0.2); BASOPHILS % (AUTO) 0.9 % (0.0-2.0); EOSINOPHILS % (AUTO) 0.1 % (0.0-6.0); HEMATOCRIT 36 % (39-51); HEMOGLOBIN 11.8 g/dL (13.5-17.5); LYMPHOCYTES # (AUTO) 0.8 K/uL (0.8-4.8); LYMPHOCYTES % (AUTO) 9.7 % (20.0-44.0); MEAN CORPUSCULAR HGB CONC 33 g/dl (31.0-36.0); MEAN CORPUSCULAR VOLUME 87 fL (80-96); MONOCYTES # (AUTO) 0.5 K/uL (0.1-1.30); MONOCYTES % (AUTO) 6.4 % (2.0-12.0); NEUTROPHILS # (AUTO) 6.8 K/uL (1.8-8.9); NEUTROPHILS % (AUTO) 82.9 % (43.0-81.0); PLATELET COUNT (AUTO) 211 K/uL (150-450); RED BLOOD CELL COUNT(AUTO) 4.14 MIL/uL (4.5-6.0); WHITE BLOOD COUNT (AUTO) 8.2 K/uL (4.3-11.0)
[2021-05-02 12:57] LABS: CALCIUM, SERUM 8.6 mg/dL (8.5-10.1)
[2021-05-02] MEDS ORDERED: POTASSIUM CHLORIDE 20 MEQ TAB.PRT.SR PO ONE ×2 (13:59→14:00)
[2021-05-02] MEDS ORDERED: LEVE500T9 PO (14:04)
[2021-05-02 14:16] VITALS: BP 135/71
--- NOTE | 2021-05-02 14:16 | NUR ---
IV removed. Catheter intact and site benign. Pressure and 4x4 applied to site. No bleeding noted. Patient discharged to home in stable condition. Written and verbal after care instructions given. Patient verbalizes understanding of instruction.
--- NOTE | 2021-05-02 14:16 | NUR ---
Patient discharged to home in stable condition. Written and verbal after care instructions given. Patient verbalizes understanding of instruction. IV removed. Pressure and 4x4 applied to site. No bleeding noted.
== END 2021-05-02 14:17 | disposition home or self-care (01) ==
LOC: ER 12:10
DX: R56.9 Unspecified convulsions (principal); E87.6 Hypokalemia; J45.909 Unspecified asthma, uncomplicated; Z88.0 Allergy status to penicillin; Z79.899 Other long term (current) drug therapy; Z79.1 Long term (current) use of non-steroidal anti-inflammatories (NSAID); Z79.82 Long term (current) use of aspirin
CPT/HCPCS: 36415; 70450; 80048; 85025; 96365; 99284; J1953; J7030